=== PATIENT | female | born 1960 | race Caucasian/White ===

== ENCOUNTER 2017-11-02 08:30 | Inpatient (IN) ==
[2017-10-26 13:34] LABS: Basophils # (Auto) 0.1 K/mcL (0.0-0.3); Basophils % (Auto) 0.9 % (0.0-2.0); Eosinophils # (Auto) 0.2 K/mcL (0.0-0.7); Eosinophils % (Auto) 3.1 % (0.0-7.0); Granulocytes % (Auto) 52.9 % (38.0-78.0); Lymphocytes # (Auto) 3.1 K/mcL (1.5-4.8); Lymphocytes % (Auto) 38.7 % (15.5-49.0); Mean Cell Volume 92.7 fL (80.0-100.0); Mean Corpuscular HGB Conc 33.3 g/dL (31.0-36.0); Mean Corpuscular Hemoglobin 30.9 pg (26.0-34.0); Monocytes # (Auto) 0.4 K/mcL (0.1-0.9); Monocytes % (Auto) 4.4 % (1.0-12.0); Platelet Count 327 K/mcL (140-440); RBC 4.26 M/mcL (4.00-5.20); Red Cell Distribution Width 13.9 % (11.5-14.5)
[2017-10-26 14:11] LABS: Blood Urea Nitrogen 18 mg/dl (6-20)
[~2017-11-02 08:30] MED LIST: ACETAMINOPHEN 500 MG TABLET PO SCH; CELECOXIB 200 MG CAPSULE PO SCH; GABAPENTIN 300 MG CAPSULE PO SCH; ceFAZolin 1 GM VIAL IV SCH; oxyCODONE 10 MG TAB.ER.12H PO SCH
--- NOTE | 2017-11-02 13:12 | Brief Operative Note ---
Date of procedure: 11/02/17 Pre-op diagnosis: right shoulder rca Post-op diagnosis: same Procedure: right reverse tsa and bicep tenodesis Grafts/Implants: Yes Anesthesia: RADHA Surgeon: Vinicius Hope Entry Level Administrative Assistant: Srikanth Arceo Estimated blood loss (cc): 20 Specimens Removed/Pathology: none sent Condition: stable Disposition: PACU
[2017-11-02] MEDS ORDERED: ONDANSETRON ODT 4 MG TABLET SL PRN (13:13)
[2017-11-02] MEDS ORDERED: FLEETS ADULT ENEMA PR PRN (13:13)
[2017-11-02] MEDS ORDERED: ACETAMINOPHEN 325 MG TABLET PO PRN (13:13)
[2017-11-02] MEDS ORDERED: TRANEXAMIC ACID 1,000 MG/10 ML VIAL IV ONE ×2 (13:13→13:25)
[2017-11-02] MEDS ORDERED: TEMAZEPAM 15 MG CAPSULE PO PRN (13:13)
[2017-11-02] MEDS ORDERED: DEXTROSE 50% 50 ML VIAL IV PRN (13:13)
[2017-11-02] MEDS ORDERED: BISACODYL 10 MG SUPP.RECT PR PRN (13:13)
[2017-11-02] MEDS ORDERED: ONDANSETRON 4 MG/2 ML VIAL IV PRN ×2 (13:13→14:05)
[2017-11-02] MEDS ORDERED: BENZOCAINE/MENTHOL 1 LOZENGE PO PRN ×2 (13:13→14:05)
[2017-11-02] MEDS ORDERED: MAGNESIUM HYDROXIDE 30 ML ORAL.SUSP PO PRN (13:13)
[2017-11-02] MEDS ORDERED: DEXTROSE 31 GM ORAL.SUSP PO PRN (13:13)
[2017-11-02] MEDS ORDERED: HYDROmorphone 2 MG/ML VIAL IV PRN ×2 (13:13→14:05)
[2017-11-02] MEDS ORDERED: POLYETHYLENE GLYCOL 3350 17 GM PACKET PO PRN (13:13)
[2017-11-02] MEDS ORDERED: MIDAZOLAM 5 MG/5 ML VIAL IV ONE (13:25)
[2017-11-02] MEDS ORDERED: ONDANSETRON 4 MG/2 ML VIAL IV ONE (13:25)
[2017-11-02] MEDS ORDERED: fentaNYL 250 MCG/5 ML VIAL IV ONE (13:25)
[2017-11-02] MEDS ORDERED: LIDOCAINE HCL/PF 100 MG/5 ML SYRINGE IV ONE (13:25)
[2017-11-02] MEDS ORDERED: SUCCINYLCHOLINE 20 MG/ML ML IV ONE (13:25)
[2017-11-02] MEDS ORDERED: PROPOFOL 200 MG/20 ML VIAL IV ONE (13:25)
[2017-11-02] MEDS ORDERED: ROPIVACAINE HCL/PF 30 ML VIAL IJ ONE (13:25)
[2017-11-02] MEDS ORDERED: DEXAMETHASONE 10 MG/ML VIAL IV ONE (13:25)
[2017-11-02] MEDS ORDERED: GENTAMICIN SULFATE 800 MG/20 ML VIAL IR ONE (13:44)
[2017-11-02] MEDS ORDERED: FLUMAZENIL 0.1 MG/ML ML IV PRN (14:05)
[2017-11-02] MEDS ORDERED: diphenhydrAMINE 50 MG/ML VIAL IV PRN (14:05)
[2017-11-02] MEDS ORDERED: LACTATED RINGERS 250 ML IV PRN (14:05)
[2017-11-02] MEDS ORDERED: PROMETHAZINE 25 MG/ML VIAL IV PRN (14:05)
[2017-11-02] MEDS ORDERED: IPRATROPIUM/ALBUTEROL 3 ML AMPUL.NEB NEB PRN (14:05)
[2017-11-02] MEDS ORDERED: NALOXONE HCL 0.4 MG/ML VIAL IV PRN (14:05)
[2017-11-02] MEDS ORDERED: LACTATED RINGERS 1,000 ML IV SCH (14:15)
[2017-11-02] MEDS: fentaNYL 100 MCG/2 ML VIAL IV PRN ×3 (15:35→16:01)
--- NOTE | 2017-11-02 15:46 | XRay Report ---
HISTORY: Postop arthroplasty of the right shoulder FINDINGS: Patient has a reverse right shoulder prosthesis. A true lateral view was not obtained. On the AP and oblique images the prosthesis appears normally aligned. There is no evidence of a fracture or abnormal soft tissue calcification. IMPRESSION: Well-positioned right shoulder prosthesis Interpreted and Authenticated by: Mauro Jovel 11/02/17
--- NOTE | 2017-11-02 15:55 | Operative Note ---
DATE OF OPERATION: 11/02/2017 PREOPERATIVE DIAGNOSES: Right shoulder severe degenerative arthritis and rotator cuff arthropathy and biceps tendinopathy. POSTOPERATIVE DIAGNOSES: Right shoulder severe degenerative arthritis and rotator cuff arthropathy and biceps tendinopathy. PROCEDURE: Right reverse total shoulder and a biceps tenodesis. SURGEON: Vinicius Hope M.D. STAFF TRAINER: Srikanth Arceo PA-C. ANESTHESIA: General LMA anesthesia. COMPLICATIONS: None. ESTIMATED BLOOD LOSS: 50 mL. IMPLANTS: A size 11 humeral stem with a noncemented stem with a 6 mm poly liner with a 36 mm glenosphere with 2 mm of offset and 2 mm of the eccentricity, a standard glenosphere 28 mm with a central screw measuring 32. The other screws around the rim were 20, 28 and 32, all with good purchase. DESCRIPTION OF PROCEDURE: The patient was brought to the operating room and put to sleep with general LMA anesthesia. Once asleep, the patient had the right shoulder sterilely prepped and draped in the usual sterile fashion and placed Ioban over the skin and had a timeout to confirm the operative site. Once this was done, we then made a deltopectoral approach to the shoulder and retracted the deltoid and the cephalic vein laterally. We exposed the anterior shoulder and released the subscap. We identified the biceps tendon and the bicipital groove which was then released and attached to the pec major muscle with two [id number] sutures. Once this was done, we released the subscap. This was tagged and retracted medially. We dislocated the humeral head and released the capsule on the inferior portion of the humeral neck. We then made our neck cut at the surgical neck region with 20 degrees of retroversion. We then placed a protective plate and retracted the humeral shaft posteriorly, the capsule anteriorly with retractors. I identified the remnants of the biceps tendon which were then removed. A 360-degree capsular release and labral removal was performed. We placed a guide pin in the central portion of the glenoid using 10 degrees of inclination. We reamed up to the size 40, implanted a 28 mm glenosphere with a central screw measuring 32. They were circumferential screws. Superior screw measured 20, inferior screw 28, anterior screw 32. Once very secure, we then placed a 36 mm glenosphere with 2 mm of offset and 2 mm eccentricity which were tapped into place. We then prepared the shaft reaming up to size 11, trialing a size 11 stem which was very stable. We then cemented into place an 11 stem distally cemented, proximally porous ingrowth because of her very poor humeral bone quality. Once the stem was dried and in place, we tapped the proximal poly and attachment into place until it came in contact with the humeral bone. Any extra cement had been removed. We had a 6 mm liner. This was reduced, had excellent range of motion, stability and tension with 1 mm play. We then closed the deltopectoral interval with 2-0 Vicryl and closed the skin with 2-0 Vicryl and adhesive closure. The patient tolerated this well without complication. Sterile bandage applied, Donjoy sling fitted and given to the patient. RBH:kenrick Job ID: [id number] Doc ID: [id number] Vinicius Hope MD
[2017-11-02] MEDS: KETOROLAC 15 MG/ML VIAL IV PRN (16:34)
[2017-11-02] MEDS: GABAPENTIN 300 MG CAPSULE PO SCH (16:35)
[2017-11-02] MEDS: 0.45 % SODIUM CHLORIDE 1,000 ML IV SCH (16:35)
[2017-11-02] MEDS: 0.9 % SODIUM CHLORIDE 10 ML SYRINGE IV SCH ×2 (16:35→22:27)
[2017-11-02] MEDS: ACETAMINOPHEN 500 MG TABLET PO SCH ×2 (16:35→20:49)
[2017-11-02] MEDS: INSULIN LISPRO 1 UNIT/0.01 ML UNIT SQ SCH ×2 (17:19→20:48)
[2017-11-02] MEDS: MULTIVIT,THER IRON,CA,FA & MIN 1 TABLET PO SCH (20:46)
[2017-11-02] MEDS: FAMOTIDINE 20 MG TABLET PO SCH (20:46)
[2017-11-02] MEDS: oxyCODONE/APAP 5/325MG TABLET PO PRN (20:47)
[2017-11-02] MEDS: DOCUSATE SODIUM 100 MG CAPSULE PO SCH (20:47)
[2017-11-02] MEDS ORDERED: NON FORMULARY MEDICATION 1 DOSE MISCELL (Ranitidine Hcl [Zantac] 300 MG) PO SCH (21:00)
[2017-11-02] MEDS ORDERED: GABAPENTIN 300 MG CAPSULE PO SCH (21:00)
[2017-11-02] MEDS ORDERED: SENNOSIDES 1 TABLET PO SCH (21:00)
[2017-11-02] MEDS: ceFAZolin 1 GM VIAL IV SCH (22:27)
[2017-11-03] MEDS: 0.45 % SODIUM CHLORIDE 1,000 ML IV SCH ×2 (02:35→09:13)
[2017-11-03] MEDS: ceFAZolin 1 GM VIAL IV SCH (05:21)
[2017-11-03] MEDS: oxyCODONE/APAP 5/325MG TABLET PO PRN ×2 (05:21→09:10)
[2017-11-03] MEDS: 0.9 % SODIUM CHLORIDE 10 ML SYRINGE IV SCH (05:22)
--- NOTE | 2017-11-03 07:35 | Orthopedic Progress Note ---
Subjective Patient information: Note initiated : 11/03/17 at 7:33 am Service Date, if different from initiated Date: [] Patient: Yaneth Theodore 57 y/o F admitted on 11/02/17 for Rt Reverse Total Shoulder Arthroplasty with*!network diagnostic support specialist!*. Chief Complaint: [Pt is stable this morning on post operative day 2 without any significant concerns or complaints. Patients vital signs have remained stable. Patients dressing is dry and is grossly intact from a neurovascular and motor standpoint. Patients 10 point ROS is otherwise negative. ] Objective Vital signs: Vital Signs Temp Pulse Resp BP Pulse Ox 11/03/17 07:31 96.9 F L 74 22 106/62 96 11/03/17 02:49 98.0 F 91 H 22 118/72 91 11/02/17 23:49 98.9 F 107 H 22 125/81 92 11/02/17 19:09 98.3 F 92 H 22 122/78 92 11/02/17 18:10 89 126/75 92 11/02/17 17:39 80 128/78 92 11/02/17 17:10 131/71 95 11/02/17 16:54 128/73 96 11/02/17 16:39 129/83 96 11/02/17 16:27 82 129/83 97 11/02/17 16:10 98 F 82 16 148/76 96 11/02/17 15:59 97.8 F 82 16 143/73 98 11/02/17 15:39 97.7 F 85 18 147/77 98 11/02/17 15:23 97.5 F 74 18 152/71 92 11/02/17 15:18 85 14 150/78 92 11/02/17 15:13 85 14 158/75 98 11/02/17 15:08 97.2 F 89 18 170/81 99 11/02/17 10:15 98.3 F 18 135/86 95 11/02/17 08:49 98.7 F 65 18 135/86 95 Intake and Output 11/02/17 11/03/17 11/03/17 21:59 05:59 13:59 Intake Total 2120 / 2120 1300 / 1300 Output Total 1050 / 1050 1100 / 1100 Balance 1070 / 1070 200 / 200 Intake: IV 1000 / 1000 Sodium Chloride 0.45% 1,000 ml 1000 / 1000 @ 100 mls/hr IV .Q10H NOAM Rx#: [id number] Oral 120 / 120 300 / 300 IV - Manual Only 1999 Output: Urine Catheter Amount 500 / 500 350 / 350 Void Amount 550 / 550 750 / 750 Other: Meal Dinner Percent of Meal Consumed 100% Feeding Ability Independent Urine Appearance Clear Clear Urine Color Bright Yellow Pale Urine Odor Normal Normal # Voids 1 Weight 189 lb 8 oz Intake & Output: Intake & Output 11/02/17 11/03/17 11/03/17 21:59 05:59 13:59 Intake Total 2120 / 2120 1300 / 1300 Output Total 1050 / 1050 1100 / 1100 Balance 1070 / 1070 200 / 200 Weight 189 lb 8 oz Intake: IV 1000 / 1000 Sodium Chloride 0.45% 1,000 ml 1000 / 1000 @ 100 mls/hr IV .Q10H NOAM Rx#: [id number] Oral 120 / 120 300 / 300 IV - Manual Only 1999 Output: Urine Catheter Amount 500 / 500 350 / 350 Void Amount 550 / 550 750 / 750 Other: Meal Dinner Percent of Meal Consumed 100% Feeding Ability Independent Urine Appearance Clear Clear Urine Color Bright Yellow Pale Urine Odor Normal Normal # Voids 1 Incision: Yes healing Incision clean and dry: Yes Dressing: Yes clean, Yes dry Weight bearing status: full Neurological exam IM: Yes motor sensory intact, Yes neurovascular intact Extremities exam IM: Yes neurovascular intact - Labs CBC & BMP: 10/26/17 11:23 10/26/17 11:23 Labs: Orthopedic Labs 10/26/17 11:23 PT 11.8 L INR 0.9 APTT 31 10/26/17 11:23 Hgb 13.2 Hct 39.5 Assessment and Plan (1) Hx of total shoulder replacement The patient has been educated regarding dressing care, Physical Therapy recommendations, home exercises, restrictions, and follow up appointments. The patient has had all necessary DME prescribed. The patient has remained relatively stable during their hospital course. Leave Dermabond patch intact until followup Status: Acute
--- NOTE | 2017-11-03 07:38 | Discharge Summary ---
Ortho Discharge - TSA - Patient Instructions Diet: Regular Diet Activity: activity as tolerated, weight bearing as tolerated Total Shoulder Protocol: Leave immobilizer in place except for bathing and ROM. Abduction pillow. Continue to wear sling until seen by physician. Codman Pendulum : These exercises use momentum produced by your body to move your shoulder joint. Bend your knees and shift your weight to your front leg, then back, allowing your arm to swing in the same directions. Using the same technique, alternately shift your weight between your right and left legs, allowing your arm to swing from side to side. These exercises are also performed in counterclockwise and clockwise circular motions. Typically these exercises are performed several times per day, for a set number repetitions or minutes, such as 20 times in a row or 5 minutes at a time. Dressing Care: May shower in 2 days - Problem Maintenance (1) Hx of total shoulder replacement Status: Acute - Follow Up Plan Follow Up Appointments: Srikanth Arceo PA-C [Physician Transit Man] - 11/17/17 9:30 am Disposition: Home, Self-Care Prognosis: Good Rehab Potential: Good I certify that the patient requires SNF services: No Overall status at discharge: patient is progressing back to baseline - Orders For Discharge Prescriptions: Docusate Sodium [Colace] 100 mg PO BID #60 cap oxyCODONE/APAP [Percocet 5-325 mg] 1 - 2 tab PO Q4HP PRN #75 tab PRN Reason: Pain Level 3-6
[2017-11-03] MEDS: KETOROLAC 15 MG/ML VIAL IV PRN (07:59)
[2017-11-03] MEDS ORDERED: DULoxetine 30 MG CAPSULE PO SCH (08:00)
[2017-11-03] MEDS ORDERED: MELOXICAM 7.5 MG TABLET PO SCH (09:00)
[2017-11-03] MEDS ORDERED: ESTRADIOL 1 MG TABLET PO SCH (09:00)
[2017-11-03] MEDS: DOCUSATE SODIUM 100 MG CAPSULE PO SCH (09:09)
[2017-11-03] MEDS: MULTIVIT,THER IRON,CA,FA & MIN 1 TABLET PO SCH (09:09)
[2017-11-03] MEDS: FAMOTIDINE 20 MG TABLET PO SCH (09:09)
[2017-11-03] MEDS: GABAPENTIN 300 MG CAPSULE PO SCH (09:10)
[2017-11-03] MEDS: ACETAMINOPHEN 500 MG TABLET PO SCH (09:11)
[2017-11-03] MEDS ORDERED: CYCLOBENZAPRINE 10 MG TABLET PO ONE (10:50)
== END 2017-11-03 11:04 | disposition home or self-care (01) | DRG 483 ==
LOC: MEDSUR 08:49
PROVIDERS: ADMIT Orthopaedic Surgery; ATTEND Orthopaedic Surgery

== ENCOUNTER 2019-04-11 08:30 | Inpatient (IN) ==
[2019-04-06 13:11] LABS: Basophils # (Auto) 0.08 K/mcL (0.00-0.30); Basophils % (Auto) 0.9 % (0.0-2.0); Eosinophils # (Auto) 0.29 K/mcL (0.00-0.70); Eosinophils % (Auto) 3.3 % (0.0-7.0); Granulocytes % (Auto) 51.6 % (38.0-78.0); Hematocrit 41.3 % (34.1-44.9); Hemoglobin 13.6 g/dL (11.2-15.7); Lymphocytes # (Auto) 3.36 K/mcL (1.50-4.80); Mean Cell Volume 91.6 fL (80.0-100.0); Mean Corpuscular HGB Conc 32.9 g/dL (31.0-36.0); Mean Platelet Volume 11.3 fL (7.4-10.4); Monocytes # (Auto) 0.55 K/mcL (0.10-0.90); Monocytes % (Auto) 6.2 % (1.0-12.0); Platelet Count 340 K/mcL (140-440); RBC 4.51 M/mcL (3.59-5.38); Red Cell Distribution Width 13.8 % (11.5-14.5); WBC 8.8 K/mcL (4.50-11.00)
[2019-04-06 13:17] LABS: Blood Urea Nitrogen 15 mg/dl (6-20); Calcium 9.9 mg/dl (8.6-10.4); Carbon Dioxide 27 mmol/L (22-30); Chloride 96 mmol/L (96-108); Glomerular Filtration Rate 81; Glucose 107 mg/dL (70-105)
[2019-04-06 18:05] LABS: Appearance,Urine CLEAR; Bilirubin,Urine NEG (NEG); Color,Urine YELLOW; Culture Indicated,Urine NO; Glucose,Urine (UA) NEGATIVE (NEG); Ketones,Urine NEG (NEG); Leukocyte Esterase,Urine NEG /uL (NEG); Nitrate,Urine NEG (NEG); Protein,Urine NEG (NEG); Specific Gravity,Urine 1.012 (1.000-1.035); Urine Blood NEG mg/dL (<0.03); Urobilinogen,Urine NEG (NEG)
[~2019-04-11 08:30] MED LIST changes: -ceFAZolin 1 GM VIAL IV SCH; +ceFAZolin 2 GM in DEXTROSE 5% IN WATER 50 ML IV SCH
[2019-04-11] MEDS ORDERED: IPRATROPIUM/ALBUTEROL 3 ML AMPUL.NEB NEB PRN ×2 (09:00→13:25)
[2019-04-11] MEDS ORDERED: SCOPOLAMINE 1 PATCH PATCH TOPICAL PRN (09:00)
[2019-04-11] MEDS ORDERED: GENTAMICIN SULFATE 800 MG/20 ML VIAL IR ONE (11:23)
[2019-04-11] MEDS ORDERED: fentaNYL 250 MCG/5 ML VIAL IV ONE (12:05)
[2019-04-11] MEDS ORDERED: LIDOCAINE HCL/PF 100 MG/5 ML SYRINGE IV ONE (12:05)
[2019-04-11] MEDS ORDERED: SUCCINYLCHOLINE 20 MG/ML ML IV ONE (12:05)
[2019-04-11] MEDS ORDERED: GLYCOPYRROLATE 0.2 MG/ML VIAL IV ONE (12:05)
[2019-04-11] MEDS ORDERED: PROPOFOL 200 MG/20 ML VIAL IV ONE (12:05)
[2019-04-11] MEDS ORDERED: ONDANSETRON 4 MG/2 ML VIAL IV ONE (12:05)
[2019-04-11] MEDS ORDERED: KETAMINE 100 MG/ML ML IV ONE (12:05)
[2019-04-11] MEDS ORDERED: ROPIVACAINE HCL/PF 30 ML VIAL IJ ONE (12:05)
[2019-04-11] MEDS ORDERED: PHENYLEPHRINE 10 MG/ML VIAL IV ONE (12:05)
[2019-04-11] MEDS ORDERED: DEXAMETHASONE 10 MG/ML VIAL IV ONE (12:05)
[2019-04-11] MEDS ORDERED: ePHEDrine 50 MG/ML AMPUL IV ONE (12:05)
[2019-04-11] MEDS ORDERED: diphenhydrAMINE 50 MG/ML VIAL IV PRN (13:25)
[2019-04-11] MEDS ORDERED: METHOCARBAMOL 1,000 MG/10 ML VIAL IV PRN (13:25)
[2019-04-11] MEDS ORDERED: ONDANSETRON 4 MG/2 ML VIAL IV PRN ×2 (13:25→13:34)
[2019-04-11] MEDS ORDERED: NALOXONE HCL 0.4 MG/ML VIAL IV PRN (13:25)
[2019-04-11] MEDS ORDERED: PROMETHAZINE 25 MG/ML VIAL IV PRN (13:25)
[2019-04-11] MEDS ORDERED: LACTATED RINGERS 250 ML IV PRN (13:25)
[2019-04-11] MEDS ORDERED: HYDROmorphone 2 MG/ML VIAL IV PRN ×2 (13:25→13:34)
[2019-04-11] MEDS ORDERED: fentaNYL 100 MCG/2 ML VIAL IV PRN (13:25)
[2019-04-11] MEDS ORDERED: LACTATED RINGERS 1,000 ML IV SCH (13:30)
[2019-04-11] MEDS ORDERED: TRANEXAMIC ACID 1,000 MG/10 ML VIAL IV SCH (13:34)
[2019-04-11] MEDS ORDERED: MAGNESIUM HYDROXIDE 30 ML ORAL.SUSP PO PRN (13:34)
[2019-04-11] MEDS ORDERED: BENZOCAINE/MENTHOL 1 LOZENGE PO PRN (13:34)
[2019-04-11] MEDS ORDERED: KETOROLAC 15 MG/ML VIAL IV PRN (13:34)
[2019-04-11] MEDS ORDERED: POLYETHYLENE GLYCOL 3350 17 GM PACKET PO PRN (13:34)
[2019-04-11] MEDS ORDERED: FLEETS ADULT ENEMA PR PRN (13:34)
[2019-04-11] MEDS ORDERED: ACETAMINOPHEN 325 MG TABLET PO PRN (13:34)
[2019-04-11] MEDS ORDERED: BISACODYL 10 MG SUPP.RECT PR PRN (13:34)
[2019-04-11] MEDS ORDERED: FAMOTIDINE 20 MG TABLET PO PRN (13:37)
[2019-04-11] MEDS ORDERED: oxyCODONE/APAP 5/325MG TABLET PO PRN (13:37)
--- NOTE | 2019-04-11 13:41 | Brief Operative Note ---
Date of procedure: 04/11/19 Pre-op diagnosis: Left shoulder rca Post-op diagnosis: same Procedure: left reverse tsa and bicep tenodesis Grafts/Implants: Yes Anesthesia: RADHA Surgeon: Vinicius Hope Hand Ii Blocker: Srikanth Arceo Estimated blood loss (cc): 120 Specimens Removed/Pathology: none sent Condition: stable Disposition: PACU
--- NOTE | 2019-04-11 14:39 | Operative Note ---
DATE OF OPERATION: 04/11/2019 PREOPERATIVE DIAGNOSES: Left shoulder rotator cuff arthropathy with retained hardware. POSTOPERATIVE DIAGNOSIS: Left shoulder rotator cuff arthropathy with retained hardware. PROCEDURES: Left reverse total shoulder with biceps tenodesis and hardware removal. SURGEON: Vinicius Hope MD FLY WINDER: Srikanth Arceo PA-C. This provider's expertise and technical skill were required throughout the case. The PA assisted with preoperative coordination, intraoperative retraction, wound closure, dressing and splint application, as well as postoperative documentation and care coordination. ANESTHESIA: General LMA anesthesia. COMPLICATIONS: None. DESCRIPTION OF PROCEDURE: The patient was brought to the operating room and put to sleep with general LMA anesthesia. Once asleep, the patient had the left shoulder sterilely prepped and draped in the usual sterile fashion. He had been sat in a beach chair position. Ioban was placed over the axillary skin and a timeout was performed. We confirmed the operative site by initials, consent form and x-rays. Preop antibiotics and tranexamic acid had been given. Once done, a deltopectoral approach was performed and we then exposed the joint, releasing the subscap anteromedially. This then subluxed the humeral head and made our neck cut at the surgical neck region and we placed a protective plate. We then subluxed the humerus posteriorly and performed a 360 degree capsular release as well as release of the remnants of the biceps. We placed a pin centrally and then reamed. We then encountered a Mitek anchor that was removed using a rongeur. We irrigated and then reamed to depth until we saw bleeding bone on the inferior 50%. Once done, we then placed a metaglene with a 32 mm central screw. This had excellent purchase. We placed 3 peripheral screws, which measured 28 mm and 32 and 32 mm. A 36 mm glenosphere was placed with 2 mm of offset and 2 mm of the eccentricity. Once done, we then prepared the humeral side. This was broached up to the size 11 and we placed an 11 trial. This seemed to fit very nicely with a standard poly. We then placed cement on the stem distally and this was tapped into place, given her bone quality was very poor. Once this was dry, we then placed a standard poly and then tapped this into place. This was reduced nicely. This had excellent range of motion of the shoulder. We irrigated thoroughly and then closed the deltopectoral interval and repaired the biceps tendon with #2 Ethibond stitches to the major. Once that was repaired, we closed the interval with 2-0 Vicryl and then closed the skin with 2-0 Vicryl and 3-0 Monocryl and adhesive closure. The patient tolerated this well without complication. This shoulder was thoroughly irrigated. RBH:sherlyn Job ID: [id number] Doc ID: [id number] Vinicius Hope MD
--- NOTE | 2019-04-11 15:11 | XRay Report ---
HISTORY: Postop left shoulder arthroplasty FINDINGS: there is a well-positioned reverse left shoulder prosthesis. No fracture is present. There is separation between the acromion and clavicle which could be posttraumatic or postsurgical. IMPRESSION: Well-positioned left shoulder prosthesis Interpreted and Authenticated by: Mauro Jovel 04/11/19
[2019-04-11] MEDS: 0.9 % SODIUM CHLORIDE 10 ML SYRINGE IV SCH ×2 (15:15→23:20)
[2019-04-11] MEDS: LACTATED RINGERS 1,000 ML IV SCH ×3 (15:53→23:53)
--- NOTE | 2019-04-11 16:23 | Discharge Summary ---
Ortho Discharge - TSA - Patient Instructions Diet: Regular Diet Activity: activity as tolerated, weight bearing as tolerated Total Shoulder Protocol: Leave immobilizer in place except for bathing and ROM. Abduction pillow. Continue to wear sling until seen by physician. Codman Pendulum : These exercises use momentum produced by your body to move your shoulder joint. Bend your knees and shift your weight to your front leg, then back, allowing your arm to swing in the same directions. Using the same technique, alternately shift your weight between your right and left legs, allowing your arm to swing from side to side. These exercises are also performed in counterclockwise and clockwise circular motions. Typically these exercises are performed several times per day, for a set number repetitions or minutes, such as 20 times in a row or 5 minutes at a time. Dressing Care: May shower in 2 days, Aquacel Ag - leave on for 5 days - Follow Up Plan Follow Up Appointments: Srikanth Arceo PA-C [Physician Montessori Toddler Teacher] - 04/26/19 9:30 am Disposition: Home, Self-Care Prognosis: Good Rehab Potential: Good I certify that the patient requires SNF services: No Overall status at discharge: patient is progressing back to baseline - Orders For Discharge Prescriptions: Docusate Sodium [Colace] 100 mg PO BID #60 cap Transmission Status: Pending to [facility] #[id number] HYDROcodone/APAP 10/325MG [[place] 10-325Mg] 1 - 2 tab PO Q4HP PRN #75 tab PRN Reason: Pain Level 3-6 Prescription Printed
[2019-04-11] MEDS: GABAPENTIN 300 MG CAPSULE PO SCH ×2 (17:34→23:52)
[2019-04-11] MEDS: DULoxetine 30 MG CAPSULE PO SCH (17:34)
[2019-04-11] MEDS: HYDROcodone/APAP 10/325MG TABLET PO PRN ×3 (19:10→23:52)
[2019-04-11] MEDS: ceFAZolin 1 GM VIAL IV SCH (19:55)
[2019-04-11] MEDS: DOCUSATE SODIUM 100 MG CAPSULE PO SCH (19:56)
[2019-04-11] MEDS ORDERED: NON FORMULARY MEDICATION 1 DOSE MISCELL (Turmeric Root Extract [Turmeric] 500 MG) PO SCH (21:00)
[2019-04-11] MEDS ORDERED: SENNOSIDES 1 TABLET PO SCH (21:00)
[2019-04-11] MEDS ORDERED: ECHINACEA 400 MG PO SCH (21:00)
[2019-04-11] MEDS ORDERED: TEMAZEPAM 15 MG CAPSULE PO PRN (21:00)
[2019-04-12] MEDS: HYDROcodone/APAP 10/325MG TABLET PO PRN ×3 (04:05→12:32)
[2019-04-12] MEDS: 0.9 % SODIUM CHLORIDE 10 ML SYRINGE IV SCH (04:06)
[2019-04-12] MEDS: ceFAZolin 1 GM VIAL IV SCH (04:06)
--- NOTE | 2019-04-12 08:05 | Orthopedic Progress Note ---
Subjective Patient information: Note initiated : 04/12/19 at 8:04 am Service Date, if different from initiated Date: [] Patient: Yaneth Theodore 59 y/o F admitted on 04/11/19 for Left Reverse Total Shoulder with Biceps Tenodesis. Chief Complaint: [minimal pain and no sob no cp and ambulated well.] Objective Vital signs: Vital Signs Temp Pulse Resp BP Pulse Ox 04/12/19 02:31 98.2 F 83 24 H 121/71 94 04/11/19 22:57 99.3 F H 103 H 24 H 109/65 95 04/11/19 20:07 99 H 24 H 92 04/11/19 19:23 98.5 F 99 H 24 H 131/77 92 04/11/19 17:55 97.8 F 105 H 18 158/85 97 04/11/19 16:55 101 H 18 148/85 99 04/11/19 16:25 102 H 18 142/83 98 04/11/19 15:55 150/82 97 04/11/19 15:40 98 H 18 148/85 97 04/11/19 15:25 104 H 16 144/80 96 04/11/19 15:10 107 H 16 142/81 96 04/11/19 14:55 97.0 F 113 H 16 139/86 94 04/11/19 14:46 97.5 F 108 H 19 133/76 95 04/11/19 14:39 108 H 15 140/72 95 04/11/19 14:24 109 H 18 135/74 94 04/11/19 14:09 101 H 19 130/60 99 04/11/19 13:54 97.8 F 105 H 15 143/82 95 04/11/19 09:21 98.7 F 86 18 135/80 93 Intake and Output 04/11/19 04/12/19 04/12/19 21:59 05:59 13:59 Intake Total 240 800 Output Total 50 Balance 240 750 Intake: Oral 240 800 Output: Void Amount 50 Other: Meal Dinner Percent of Meal Consumed 100% Feeding Ability Independent Urine Appearance Clear # Voids 1 1 Weight 206 lb 8 oz Intake & Output: Intake & Output 04/11/19 04/12/19 04/12/19 21:59 05:59 13:59 Intake Total 240 800 Output Total 50 Balance 240 750 Weight 206 lb 8 oz Intake: Oral 240 800 Output: Void Amount 50 Other: Meal Dinner Percent of Meal Consumed 100% Feeding Ability Independent Urine Appearance Clear # Voids 1 1 Incision: Yes healing Incision clean and dry: Yes Dressing: Yes clean Weight bearing status: full Neurological exam IM: Yes abnormal gait, Yes oriented X3, Yes neurovascular intact Extremities exam IM: Yes Foot pink and warm (dc home) - Labs CBC & BMP: 04/06/19 09:47 04/06/19 09:47 Labs: 04/06/19 09:47 Hgb 13.6 Hct 41.3
[2019-04-12] MEDS: DULoxetine 30 MG CAPSULE PO SCH (08:30)
[2019-04-12] MEDS: GABAPENTIN 300 MG CAPSULE PO SCH (08:30)
[2019-04-12] MEDS: DOCUSATE SODIUM 100 MG CAPSULE PO SCH (08:31)
[2019-04-12] MEDS ORDERED: UBIDECARENONE 100 MG PO SCH (09:00)
[2019-04-12] MEDS ORDERED: BIOTIN 2500 MCG PO SCH (09:00)
[2019-04-12] MEDS ORDERED: MELOXICAM 15 MG PO SCH (09:00)
[2019-04-12] MEDS ORDERED: MAGNESIUM OXIDE 400 MG TABLET PO SCH (09:00)
[2019-04-12] MEDS: LACTATED RINGERS 1,000 ML IV SCH (10:35)
== END 2019-04-12 13:11 | disposition home or self-care (01) | DRG 483 ==
LOC: MEDSUR 08:39
PROVIDERS: ADMIT Orthopaedic Surgery; ATTEND Orthopaedic Surgery

== ENCOUNTER 2020-02-24 11:29 | Inpatient (IN) ==
[2020-02-24] MEDS ORDERED: GENTAMICIN SULFATE 800 MG/20 ML VIAL IR ONE (11:43)
[2020-02-24] MEDS ORDERED: ceFAZolin 2 GM in DEXTROSE 5% IN WATER 50 ML IV SCH (12:30)
[2020-02-24] MEDS ORDERED: ONDANSETRON 4 MG/2 ML VIAL IV PRN ×6 (12:40→17:50)
[2020-02-24] MEDS ORDERED: HYDROmorphone 1 MG/ML SYRINGE IV PRN ×2 (12:40→17:50)
[2020-02-24] MEDS ORDERED: FLEETS ADULT ENEMA PR PRN ×2 (12:40→17:50)
[2020-02-24] MEDS ORDERED: TRANEXAMIC ACID 1,000 MG/10 ML VIAL IV SCH (12:40)
[2020-02-24] MEDS ORDERED: BISACODYL 10 MG SUPP.RECT PR PRN ×3 (12:40→17:50)
[2020-02-24] MEDS ORDERED: BENZOCAINE/MENTHOL 1 LOZENGE PO PRN ×2 (12:40→15:37)
[2020-02-24] MEDS ORDERED: MAGNESIUM HYDROXIDE 30 ML ORAL.SUSP PO PRN ×2 (12:40→17:50)
[2020-02-24] MEDS ORDERED: KETOROLAC 15 MG/ML VIAL IV PRN (12:40)
[2020-02-24] MEDS ORDERED: HYDROcodone/APAP 10/325MG TABLET PO PRN (12:40)
[2020-02-24] MEDS ORDERED: ACETAMINOPHEN 325 MG TABLET PO PRN ×3 (12:40→17:50)
[2020-02-24] MEDS ORDERED: POLYETHYLENE GLYCOL 3350 17 GM PACKET PO PRN ×3 (12:40→17:50)
[2020-02-24] MEDS ORDERED: LACTATED RINGERS 1,000 ML IV SCH ×2 (12:45→15:45)
[2020-02-24] MEDS ORDERED: CYCLOBENZAPRINE 10 MG TABLET PO PRN (12:48)
[2020-02-24] MEDS ORDERED: HYDROCORTISONE SOD SUCC 250 MG/2 ML IV ONE (13:09)
[2020-02-24] MEDS ORDERED: ONDANSETRON 4 MG/2 ML VIAL ONE (13:09)
[2020-02-24] MEDS ORDERED: KETAMINE 100 MG/ML ML ONE (13:09)
[2020-02-24] MEDS ORDERED: HYDROmorphone* 2 MG/ML VIAL ONE (13:09)
[2020-02-24] MEDS ORDERED: LIDOCAINE HCL/PF 100 MG/5 ML SYRINGE IV ONE (13:09)
[2020-02-24] MEDS ORDERED: PROPOFOL 200 MG/20 ML VIAL IV ONE (13:09)
[2020-02-24] MEDS ORDERED: fentaNYL 250 MCG/5 ML VIAL IV ONE (13:09)
[2020-02-24] MEDS ORDERED: SUCCINYLCHOLINE 20 MG/ML ML IV ONE (13:09)
[2020-02-24] MEDS ORDERED: DEXAMETHASONE 10 MG/ML VIAL ONE (13:09)
[2020-02-24 13:10] LABS: Basophils # (Auto) 0.08 K/mcL (0.00-0.20); Basophils % (Auto) 0.4 % (0.0-2.0); Eosinophils # (Auto) 0.01 K/mcL (0.00-0.70); Eosinophils % (Auto) 0 % (0.0-7.0); Hematocrit 39.9 % (36.0-48.0); Hemoglobin 13.2 g/dL (12.0-15.0); Lymphocytes # (Auto) 1.41 K/mcL (1.50-4.80); Lymphocytes % (Auto) 6.3 % (15.0-49.0); Mean Cell Volume 93.7 fL (80.0-100.0); Mean Corpuscular HGB Conc 33.1 g/dL (31.0-36.0); Mean Platelet Volume 11.1 fL (7.4-10.4); Monocytes # (Auto) 1.23 K/mcL (0.10-0.90); Monocytes % (Auto) 5.5 % (1.0-12.0); Neutrophils % (Auto) 87.8 % (38.0-78.0); Platelet Count 310 K/mcL (140-440); RBC 4.26 M/mcL (4.00-5.20); Red Cell Distribution Width 13.7 % (11.5-14.5); WBC 22.4 K/mcL (4.5-11.0)
[2020-02-24 13:32] LABS: Blood Urea Nitrogen 17 mg/dL (6-20); Calcium 9.7 mg/dL (8.6-10.4); Carbon Dioxide 21 mmol/L (22-30); Chloride 100 mmol/L (96-108); Glomerular Filtration Rate 99; Glucose 137 mg/dL (70-105)
[2020-02-24 13:53] LABS: Prothrombin Time 13.5 sec (11.9-14.5)
[2020-02-24] MEDS ORDERED: 0.9 % SODIUM CHLORIDE 10 ML SYRINGE IV SCH ×2 (14:00→22:00)
[2020-02-24] MEDS ORDERED: GABAPENTIN 300 MG CAPSULE PO SCH (15:00)
--- NOTE | 2020-02-24 15:01 | Brief Operative Note ---
Brief Operative Note Date of procedure: 02/24/20 Pre-op diagnosis: right hhip fracture greater trochanter Post-op diagnosis: same Procedure: Right hip orif greater trochanter Grafts/Implants: Yes Anesthesia: GETA Complications: none Surgeon: Vinicius Hope Demurrage Man: Srikanth Arceo Estimated blood loss (cc): 300 Tourniquet Time (Minutes): 0 Specimens Removed/Pathology: none sent Condition: stable Disposition: PACU
--- NOTE | 2020-02-24 15:05 | XRay Report ---
INDICATION: RIGHT HIP ORIF TECHNIQUE: 5.82 mGy exposure and 0.2 minutes fluoroscopy utilized by Dr. Hope. Intraoperative spot films obtained. Open reduction and internal fixation of right greater trochanteric and subtrochanteric fracture. IMPRESSION: Open reduction and internal fixation of right trochanteric and subtrochanteric periprosthetic fracture Interpreted and Authenticated by: Turner Viera 02/24/20
--- NOTE | 2020-02-24 15:13 | Discharge Plan ---
Discharge Plan Patient/Caregiver Discharge Instructions Activity: ambulate only with your walker and as per physical therapy Diet: Regular Diet Prescriptions: New hydrocodone-acetaminophen 10-325 mg Tablet 1 - 2 tab PO Q4HP PRN (Reason: Per Pain Protocol) Qty: 75 RF: 0 aspirin 325 mg Tablet,Delayed Release (Dr/Ec) 325 mg PO BID Qty: 30 RF: 0 docusate sodium 100 mg Capsule 100 mg PO BID Qty: 60 RF: 0 No Action duloxetine 60 mg capsule,delayed release(DR/EC) 60 mg PO BID@0800,1800 Qty: 180 RF: 4 meloxicam 15 mg tablet 15 mg PO DAILY Qty: 90 RF: 4 oxycodone-acetaminophen 5-325 mg tablet 1 tab PO Q8H PRN (Reason: shoulder pain) 30 Days Qty: 90 RF: 0 gabapentin 300 mg capsule See Rx Instructions .ROUTE .COMPLEX Qty: 90 RF: 0 echinacea 400 MG capsule 400 mg PO BID RF: 0 turmeric root extract 500 MG capsule 500 mg PO BID RF: 0 magnesium oxide 400 MG tablet 400 mg PO DAILY RF: 0 cyclobenzaprine 10 mg tablet 10 mg PO TID PRN (Reason: muscle spasm) Qty: 30 RF: 0 Other Ambulatory Orders: Physical Therapy DC - EDU (Routine) Location: None Selected Ordered By: Srikanth Arceo Toilet Riser Discharge Order (ONCE) Location: None Selected Ordered By: Srikanth Arceo Walker (ONCE) Location: None Selected Ordered By: Srikanth Arceo Follow Up Plan Follow up with: Srikanth Arceo PA-C [Physician Identification Clerk] - Patient Disposition: Home, Self-Care Prognosis: Good Rehab Potential: Good I certify that the patient requires SNF services: No Overall status at discharge: patient is progressing back to baseline Discharge Orders: Discharge Order (Routine); Ordered 02/25/20 Ordered By: Srikanth Arceo Interventions Interventions: Discharge Vital Signs Last Done: 02/24/20 12:17
[2020-02-24] MEDS ORDERED: IPRATROPIUM/ALBUTEROL 3 ML AMPUL.NEB NEB ONE (15:29)
[2020-02-24] MEDS ORDERED: PROMETHAZINE 25 MG/ML VIAL IV PRN (15:37)
[2020-02-24] MEDS ORDERED: IPRATROPIUM/ALBUTEROL 3 ML AMPUL.NEB NEB PRN (15:37)
[2020-02-24] MEDS ORDERED: MEPERIDINE 25 MG/ML SYRINGE IV PRN (15:37)
[2020-02-24] MEDS ORDERED: LACTATED RINGERS 250 ML IV PRN (15:37)
[2020-02-24] MEDS ORDERED: diphenhydrAMINE 50 MG/ML VIAL IV PRN (15:37)
[2020-02-24] MEDS ORDERED: METHOCARBAMOL 1,000 MG/10 ML VIAL IV PRN (15:37)
[2020-02-24] MEDS ORDERED: ACETAMINOPHEN 1,000 MG/100 ML BAG IV ONE (15:37)
[2020-02-24] MEDS ORDERED: NALOXONE HCL 0.4 MG/ML VIAL IV PRN (15:37)
--- NOTE | 2020-02-24 15:48 | XRay Report ---
INDICATION: Elevated wbc, new productive cough TECHNIQUE: AP portable semiupright chest x-ray COMPARISON: Previous chest x-rays dated 02/22/2020, 10/17/2016, 03/21/2015 FINDINGS:Bilateral reverse shoulder arthroplasty. There is a linear density overlying the left hemithorax. This is presumably within the patient's clothing Lungs:There are left-sided pulmonary parenchymal infiltrates which are new since 02/22/2020. Right lung is negative. Covid is possible although this is typically bilateral. No parenchymal consolidation. Heart, vascular:No significant cardiomegaly. Pulmonary vascularity is normal. No pulmonary edema or pulmonary congestion Mediastinum, kristal:No mediastinal widening. No hilar mass Pleura:No pleural fluid. No pleural-based mass or calcification Skeletal:Negative. IMPRESSION: 1. Interval development of left-sided infiltrates 2. Findings are consistent with pneumonia and covid is possible Interpreted and Authenticated by: Turner Viera 02/24/20
[2020-02-24] MEDS ORDERED: METHOCARBAMOL 1,000 MG/10 ML VIAL ONE (15:49)
[2020-02-24] MEDS: fentaNYL 100 MCG/2 ML VIAL IV PRN ×4 (15:52→16:03)
--- NOTE | 2020-02-24 16:20 | Operative Note ---
DATE OF OPERATION: 02/24/2020 PREOPERATIVE DIAGNOSIS: Greater trochanteric fracture with a periprosthetic extension around her total hip. POSTOPERATIVE DIAGNOSIS: Greater trochanteric fracture with a periprosthetic extension around her total hip. PROCEDURE: Right greater trochanter displaced fracture open reduction and internal fixation with a hook plate and five cables. The hook plate was 115 mm in length. SURGEON: Vinicius Hope M.D. ASBESTOS WORKER: Srikanth Arceo PA-C. The PA's assistance was required for the safe and efficient completion of the entire case. This providers expertise and technical skill were required throughout the case. The PA assisted with preoperative coordination, intraoperative retraction, wound closure, dressing and splint application, as well as postoperative documentation and care coordination. ANESTHESIA: General LMA anesthesia. ESTIMATED BLOOD LOSS: About 300 mL. COMPLICATIONS: None. DISPOSITION: To PACU. DESCRIPTION OF PROCEDURE: The patient was brought to the operating room, put to sleep with general LMA anesthesia. Once asleep, the right hip was sterilely prepped in the left lateral position. Once done, we incised through a prior scar, exposing the fracture site and using the Charnley retractor. We were able to obtain reduction of the greater trochanter over the proximal femoral component. Once done, we then placed a trial and this trial seemed to fit very nicely with 115 mm length. We opened the implant, which was a [employer] hook plate that was a small hook with 115 length. Five cables were passed. Image was used to confirm position and reduction. We obtained anatomic reduction. We then placed the five cables and re-tensioned. We repeated the x-rays and one more re-tensioning gave excellent stability. The fracture itself was very stable. We irrigated thoroughly and then closed the fascial layer with #1 Stratafix x2. We closed the fatty layer with Stratafix and then closed the skin with Stratafix and brad. The patient tolerated this well. There were no complications. Blood loss was 300 mL. She had some difficulty with intubation, meaning a reactive airway, which was going to be reevaluated afterwards. RBH:kenrick Job ID: [id number] Doc ID: [id number] Vinicius Hope MD
[2020-02-24] MEDS ORDERED: POTASSIUM CHLORIDE 40 MEQ in DEXTROSE 5% IN WATER 500 ML IV PRN ×2 (16:43→17:50)
[2020-02-24] MEDS ORDERED: MELATONIN 3 MG TABLET PO PRN (16:43)
[2020-02-24] MEDS ORDERED: POTASSIUM CHLORIDE 20 MEQ PACKET PO PRN ×2 (16:43→17:50)
[2020-02-24] MEDS ORDERED: ONDANSETRON 4 MG ODT TABLET SL PRN ×2 (16:43→17:50)
[2020-02-24] MEDS ORDERED: MAGNESIUM SULFATE 2 GM/50 ML BAG IV PRN ×2 (16:43→17:50)
[2020-02-24] MEDS ORDERED: ACETAMINOPHEN 650 MG/65 ML BAG IV PRN ×2 (16:43→17:50)
[2020-02-24] MEDS ORDERED: 0.9 % SODIUM CHLORIDE 1,000 ML IV SCH ×2 (16:45)
[2020-02-24] MEDS ORDERED: VANCOMYCIN PER PHARMACY IV SCH ×2 (16:45→17:50)
--- NOTE | 2020-02-24 16:46 | Internal Medicine Consult Note ---
HPI Data of Consult Consult date: 02/24/20 Requesting physician: Vinicius Hope Primary Care Provider: Adolfo Medrano M.D., F.A.A.F.P. Consult Narrative Chief complaint: Fall, SOb Reason for consult: Sepsis, Resp failure History of present illness: Ms. Theodore is a 59-year-old with a history of anxiety disorder/recent fall on 02/21, in the ER and was discharged home on conservative management. She subsequently fell twice getting off balance while she was on crutches. She presented to the ER for evaluation on and underwent surgery for greater trochanter fracture with periprosthetic extension into the total hip by Dr. Hope orthopedics. Postoperatively hospitalist service was consulted as patient was found be tachycardic/hypoxic requiring 6-8 L oxygen and chest x-ray suggestive of left- sided pneumonia along with white count over 22,000. Patient was seen in immediate postoperative phase. Fairly short of breath requiring 8 L of oxygen maintaining sats around 90s. Patient was initiated on noninvasive ventilation due to increased work of breathing and profound hypoxemia. Blood gas/stat chest imaging was ordered along with blood cultures and patient was started on broad-spectrum antibiotic coverage. COVID-19 PCR was ordered. Patient is being moved to intensive care unit due to persistent hemodynamic instability tachycardia at 130/tachypnea @40's and hypoxic respiratory failure requiring NIV and a large AA gradient on ABG with PaO2 65 on 6 L O2/PaO2 FiO2 ratio less than 150 Patient was able to answer most the question, denies chest pain but feels weak and short of breath and frequently coughing. She appears very anxious. She denies aspiration episodes or recurrent pneumonia. She further denies sick contacts. She is able to provide history as above. Denies fever, chills, chest pain, headache Review of systems 10 point review system was performed and is negative except for 1 discussed cc:: CC: Vinicius Hope [facility] PFSH All Active Problems (Updated 02/22/20 @ 11:47 by Flo Wiggins MD) Cervical disc disease (Acute) Hx of total shoulder replacement (Acute) Closed fracture of greater trochanter of right femur (Acute) Muscle spasm (Acute) Chronic right shoulder pain (Chronic) Encounter for Health Maintenance Examination in Adult (Chronic) Low back pain of thoracolumbar region with sciatica (Chronic) History of shoulder surgery (Chronic) Status post right knee replacement (Chronic) History of left knee replacement (Chronic) History of total knee arthroplasty (Chronic 05/03/13) History of hysterectomy (Chronic) History of right hip replacement (Chronic) History of hand surgery (Chronic) History of carpal tunnel repair (Chronic) History of blood transfusion (Chronic) History of back surgery (Chronic) History of tobacco use (Chronic) Closed rib fracture (Chronic) Osteoporosis screening (Chronic) Hormone replacement therapy (Chronic) Fibromyalgia (Chronic) Dyspepsia (Chronic) Depression (Chronic) Degenerative joint disease (Chronic) Carpal tunnel syndrome (Chronic) Medical History (Updated 02/22/20 @ 11:47 by Flo Wiggins MD) Carpal tunnel syndrome (Chronic) Bilateral carpal tunnel--Nerve conduction 03/2011. Left Carpal Pam op 03/2011. Closed rib fracture (Chronic) Fifth thru seventh ribs anteriorly. Degenerative joint disease (Chronic) DJD with multiple surgeries. 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 See comprehensive review dictation of 12/2011. Depression (Chronic) Hx; currently stable off medications, but for sleep we will have her try some Trazodone, patient will report. Dyspepsia (Chronic) Hx of chronic; requires high-dose Zantac for stability, but it is quite stable. Encounter for Health Maintenance Examination in Adult (Chronic) Fibromyalgia (Chronic) History of tobacco use (Chronic) Ex-smoker; quit 05/2007. Chest x-ray 07/2010. Hormone replacement therapy (Chronic) S/P complete hysterectomy in distant past for non-cancerous reasons; estrogen replacement therapy. Breast exam with cystic change. Low back pain of thoracolumbar region with sciatica (Chronic) Osteoporosis screening (Chronic) Normal bone density 07/2010 with a T-score of -0.5 at the hip and +0.2 at the wrist; slightly low vitamin D level of 22.0 in 07/2010 with dosing corrected. Surgical History H/O colonoscopy (Chronic) 05/01/2015-[facility] History of back surgery (Chronic) 2004 History of blood transfusion (Chronic) Has had a blood transfusion in the past, but none of these were before 1991. She would not require screening for hepatitis C. History of carpal tunnel repair (Chronic) 03/2011 Bilateral carpal tunnel--Nerve conduction 03/2011. Left Carpal Tunnel op 03/2011. History of hand surgery (Chronic) Multiple surgeries on her hand History of hysterectomy (Chronic) Complete History of left knee replacement (Chronic) 2001 History of right hip replacement (Chronic) 2004 History of shoulder surgery (Chronic) 1993 right shoulder; 1994 left shoulder History of total knee arthroplasty (Chronic 05/03/13) RIGHT Status post right knee replacement (Chronic) 2000 Family History Mother Anemia Had pernicious anemia Diabetes mellitus and in several older family members Sister Anemia Had pernicious anemia Social History (Updated 08/19/19 @ 08:46 by Adolfo Medrano MD, FAAFP) household members: alone housing: house lives independently: Yes marital status: occupational status: retired occupation: Sales Analyst other: Exposure to second hand smoke smoking status: Never smoker alcohol intake frequency: a few times a month substance use type: does not use MEDS/ALLERGIES Home Medications and Allergies Home Medications Medication Instructions Recorded Confirmed Type echinacea 400 mg PO BID 04/06/19 02/24/20 History magnesium oxide 400 mg PO DAILY 04/06/19 02/24/20 History turmeric root extract 500 mg PO BID 04/06/19 02/24/20 History duloxetine 60 mg capsule,delayed 60 mg PO BID@0800,1800 #180 cap 09/13/19 02/24/20 Rx release meloxicam 15 mg tablet 15 mg PO DAILY #90 tab 11/25/19 02/24/20 Rx oxycodone-acetaminophen 5 mg-325 1 tab PO Q8H PRN 30 Days #90 tab 02/03/20 02/24/20 Rx mg tablet gabapentin 300 mg capsule See Rx Instructions .ROUTE 02/08/20 02/24/20 Rx .COMPLEX #90 cap cyclobenzaprine 10 mg PO TID PRN #30 tab 02/22/20 02/24/20 Rx aspirin 325 mg PO BID #30 tab 02/24/20 Rx docusate sodium 100 mg PO BID #60 cap 02/24/20 Rx hydrocodone-acetaminophen 1 - 2 tab PO Q4HP PRN #75 tab 02/24/20 Rx Allergies Allergy/AdvReac Type Severity Reaction Status Date / Time meperidine AdvReac Mild Nausea Verified 08/19/19 07:57 EXAM Constitutional Vitals: Temp Pulse Resp BP Pulse Ox 98.1 F 113 H 24 H 144/75 93 02/24/20 15:16 02/24/20 15:16 02/24/20 15:16 02/24/20 15:16 02/24/20 15:16 Alert but anxious. Moderate respirator distress Head normocephalic Oral cavity moist No ear nose discharge Eye movement symmetrical Neck supple no lymphadenopathy S1-S2 tachycardia at 130 Labored/rapid breathing in mid 30s Nondistended nontender abdomen Right lower extremity surgery site no swelling, no cyanosis clubbing or joint swelling Skin no suspicious lesion Psych no hallucination Neuro normal higher function DATA Data Completed and Pending Labs: Labs from last 24 hours 02/24/20 02/24/20 02/24/20 12:15 12:15 12:15 WBC 22.4 H RBC 4.26 Hgb 13.2 Hct 39.9 MCV 93.7 MCH 31.0 MCHC 33.1 RDW 13.7 Plt Count 310 MPV 11.1 H Neut % (Auto) 87.8 H Lymph % (Auto) 6.3 L [place] % (Auto) 5.5 Eos % (Auto) 0 Baso % (Auto) 0.4 Lymph # (Auto) 1.41 L [place] # (Auto) 1.23 H Eos # (Auto) 0.01 Baso # (Auto) 0.08 Absolute Neutrophils 19.68 H PT 13.5 INR 1.0 Sodium 134 Potassium 3.9 Chloride 100 Carbon Dioxide 21 L Anion Gap 13.0 BUN 17 Creatinine 0.6 GFR Calculation 99 Glucose 137 H Calcium 9.7 SARS-CoV-2 (PCR) 02/24/20 12:11 WBC RBC Hgb Hct MCV MCH MCHC RDW Plt Count MPV Neut % (Auto) Lymph % (Auto) [place] % (Auto) Eos % (Auto) Baso % (Auto) Lymph # (Auto) [place] # (Auto) Eos # (Auto) Baso # (Auto) Absolute Neutrophils PT INR Sodium Potassium Chloride Carbon Dioxide Anion Gap BUN Creatinine GFR Calculation Glucose Calcium SARS-CoV-2 (PCR) TNP A/P Narrative A/P Narrative: * Right hip fracture-continue postop management per orthopedics * DVT Prophylaxis/pain management as per orthopedics HOSPITALIST CONSULT * Severe sepsis with endorgan dysfunction-pancultures/broad antibiotic coverage/crystalloid/management per guidelines. White count 22.4. Await lactic acid * Left lower lobe pneumonia likely nosocomial versus aspiration. Initiate empiric broad antibiotic coverage. Rule out Covid 19. Continue aspiration question * Acute respiratory failure with hypoxemia requiring 8 L oxygen. Now transition to noninvasive ventilation ABG 7.3 /65 on 6 L oxygen. PaO2/FiO2 ratio less than 150. Transfer to ICU * Anxiety disorder continue as needed anxiolytics. Plan * Transfer to ICU * Noninvasive ventilation/blood cultures/antibiotic * ABG/interval imaging * Pressors if indicated * Broad-spectrum antibiotics * Patient critically ill managing ICU care. Initial [place] 2 score 18 Time spent on initial consultation 70 minutes Additional 35 minutes critical care time spent on management of hypoxic re spiratory failure/severe sepsis/NIV management/ABG, EKG and imaging review Time Spent With Patient Time: Total time spent is greater than 50% in coordination of care (as documented) at patient's floor/unit and/or counseling patient: Total time spent with greater than 50% in coordination of care (as documented) at patient's floor/unit and/or counseling patient:: Greater than 35 minutes
[2020-02-24] MEDS ORDERED: LEVOFLOXACIN 750 MG/150 ML BAG IV SCH (17:00)
--- NOTE | 2020-02-24 17:36 | XRay Report ---
INDICATION: Post-op Total Hip TECHNIQUE: AP pelvis. AP and crosstable lateral right hip COMPARISON: Preoperative evaluation dated 02/22/2020 FINDINGS: Previous examination demonstrated right total hip arthroplasty. There is a periprosthetic right greater trochanteric fracture. Status post open reduction and internal fixation. There is a plate and multiple wires present. Alignment is anatomic. IMPRESSION: Status post open reduction and internal fixation of periprosthetic greater trochanteric fracture Interpreted and Authenticated by: Turner Viera 02/24/20
[2020-02-24] MEDS ORDERED: DULoxetine 30 MG CAPSULE PO SCH (18:00)
[2020-02-24] MEDS ORDERED: PIPERACILLIN SODIUM/TAZOBACTAM 3.375 GM in DEXTROSE 5% IN WATER 50 ML IV SCH (18:00)
--- NOTE | 2020-02-24 18:09 | XRay Report ---
INDICATION: SOB TECHNIQUE: AP portable upright chest x-ray COMPARISON: None FINDINGS: Lungs:Lungs are negative. No focal pulmonary parenchymal infiltrate or mass Heart, vascular:No significant cardiomegaly. Pulmonary vascularity is normal. No pulmonary edema or pulmonary congestion Mediastinum, kristal:No mediastinal widening. No hilar mass Pleura:No pleural fluid. No pleural-based mass or calcification Skeletal:Negative. IMPRESSION: Negative AP chest x-ray Interpreted and Authenticated by: Turner Viera 02/24/20
[2020-02-24] MEDS: 0.9 % SODIUM CHLORIDE 1,000 ML IV SCH ×2 (18:20→19:31)
[2020-02-24] MEDS ORDERED: 0.9 % SODIUM CHLORIDE 500 ML IV ONE (18:39)
[2020-02-24] MEDS: VANCOMYCIN 1,500 MG in 0.9 % SODIUM CHLORIDE 500 ML IV SCH (18:46)
[2020-02-24] MEDS: GABAPENTIN 300 MG CAPSULE PO SCH (19:39)
[2020-02-24] MEDS: DULoxetine 30 MG CAPSULE PO SCH (19:39)
[2020-02-24] MEDS: ASPIRIN 325 MG ENTERIC COATED TABLET PO SCH (19:39)
[2020-02-24] MEDS: CYCLOBENZAPRINE 10 MG TABLET PO PRN (19:40)
[2020-02-24] MEDS: HYDROcodone/APAP 10/325MG TABLET PO PRN (19:40)
[2020-02-24] MEDS: LEVOFLOXACIN 750 MG/150 ML BAG IV SCH (19:42)
[2020-02-24] MEDS: DOCUSATE SODIUM 100 MG CAPSULE PO SCH (19:42)
[2020-02-24] MEDS: 0.9 % SODIUM CHLORIDE 10 ML SYRINGE IV SCH ×2 (19:43→21:31)
[2020-02-24] MEDS ORDERED: ceFAZolin 1 GM VIAL IV SCH (20:30)
[2020-02-24] MEDS: PIPERACILLIN SODIUM/TAZOBACTAM 3.375 GM in DEXTROSE 5% IN WATER 50 ML IV SCH (20:30)
[2020-02-24] MEDS ORDERED: DOCUSATE SODIUM 100 MG CAPSULE PO SCH ×2 (21:00)
[2020-02-24] MEDS ORDERED: SENNOSIDES 1 TABLET PO SCH ×2 (21:00)
[2020-02-24] MEDS ORDERED: ASPIRIN 325 MG ENTERIC COATED TABLET PO SCH (21:00)
[2020-02-24] MEDS ORDERED: HEPARIN 5,000 UNIT/ML VIAL SQ SCH (21:00)
[2020-02-24] MEDS ORDERED: TEMAZEPAM 15 MG CAPSULE PO PRN ×2 (21:00)
[2020-02-24] MEDS ORDERED: TURMERIC ROOT EXTRACT 500 MG PO SCH (21:00)
[2020-02-24] MEDS ORDERED: ECHINACEA 400 MG PO SCH (21:00)
[2020-02-24] MEDS ORDERED: SENNOSIDES/DOCUSATE SODIUM 1 TAB TABLET PO SCH (21:00)
[2020-02-25] MEDS: PIPERACILLIN SODIUM/TAZOBACTAM 3.375 GM in DEXTROSE 5% IN WATER 50 ML IV SCH ×5 (02:18→23:21)
[2020-02-25] MEDS: HYDROcodone/APAP 10/325MG TABLET PO PRN ×6 (02:22→22:57)
[2020-02-25] MEDS: 0.9 % SODIUM CHLORIDE 10 ML SYRINGE IV SCH ×3 (05:34→21:41)
[2020-02-25 07:00] LABS: Basophils # (Auto) 0.01 K/mcL (0.00-0.20); Basophils % (Auto) 0.1 % (0.0-2.0); Eosinophils # (Auto) 0 K/mcL (0.00-0.70); Eosinophils % (Auto) 0 % (0.0-7.0); Hematocrit 30.5 % (36.0-48.0); Lymphocytes # (Auto) 1.26 K/mcL (1.50-4.80); Mean Cell Volume 94.7 fL (80.0-100.0); Mean Corpuscular HGB Conc 32.8 g/dL (31.0-36.0); Mean Platelet Volume 11.3 fL (7.4-10.4); Monocytes # (Auto) 1.31 K/mcL (0.10-0.90); Monocytes % (Auto) 7.3 % (1.0-12.0); Neutrophils % (Auto) 85.6 % (38.0-78.0); Platelet Count 277 K/mcL (140-440); RBC 3.22 M/mcL (4.00-5.20); Red Cell Distribution Width 13.4 % (11.5-14.5); WBC 17.9 K/mcL (4.5-11.0)
[2020-02-25] MEDS: DULoxetine 30 MG CAPSULE PO SCH ×2 (07:11→17:45)
[2020-02-25 08:09] LABS: ALT/SGPT 12 U/L (<40); AST/SGOT 23 U/L (<32); Albumin 3.7 gm/dL (3.2-5.2); Albumin/Globulin Ratio 1.4 (1.0-2.3); Alkaline Phosphatase 58 U/L (39-117); Bilirubin,Direct 0.2 mg/dL (<0.3); Bilirubin,Total 1.1 mg/dL (0.1-1.0); Blood Urea Nitrogen 15 mg/dL (6-20); Carbon Dioxide 23 mmol/L (22-30); Chloride 97 mmol/L (96-108); Globulin 2.6 gm/dL (2.2-3.7); Glomerular Filtration Rate 99; Glucose 124 mg/dL (70-105); Lactate Dehydrogenase 250 U/L (135-225); Phosphorous 2.6 mg/dL (2.5-4.5); Triglycerides 74 mg/dL (<150); Uric Acid 2.2 mg/dL (2.5-8.0)
[2020-02-25] MEDS: ASPIRIN 325 MG ENTERIC COATED TABLET PO SCH ×2 (08:24→21:30)
[2020-02-25] MEDS: GABAPENTIN 300 MG CAPSULE PO SCH ×3 (08:24→21:30)
[2020-02-25] MEDS: DOCUSATE SODIUM 100 MG CAPSULE PO SCH ×2 (08:24→21:29)
[2020-02-25] MEDS ORDERED: MULTIVIT,THER IRON,CA,FA & MIN 1 TABLET PO SCH ×2 (09:00)
[2020-02-25] MEDS ORDERED: MAGNESIUM OXIDE 400 MG TABLET PO SCH ×2 (09:00)
--- NOTE | 2020-02-25 09:11 | Internal Med Progress Note ---
SUBJECTIVE Subjective Patient information: Note initiated : 02/25/20 at 9:07 am Service Date, if different from initiated Date: [] Patient: Yaneth Theodore a 59 y/o F admitted on 02/24/20 for Right Hip Open Reduction Internal Fixation. Chief Complaint: [] Interval history: Ms. Theodore is a 59-year-old with a history of anxiety disorder/recent fall on 02/21, in the ER and was discharged home on conservative management. She subsequently fell twice getting off balance while she was on crutches. She presented to the ER for evaluation on and underwent surgery for greater trochanter fracture with periprosthetic extension into the total hip by Dr. Hope orthopedics. Postoperatively hospitalist service was consulted as patient was found be ta chycardic/hypoxic requiring 6-8 L oxygen and chest x-ray suggestive of left- sided pneumonia along with white count over 22,000. Patient was seen in immediate postoperative phase. Fairly short of breath requiring 8 L of oxygen maintaining sats around 90s. Patient was initiated on noninvasive ventilation due to increased work of breathing and profound hypoxemia. Blood gas/stat chest imaging was ordered along with blood cultures and patient was started on broad-spectrum antibiotic coverage. COVID-19 PCR was ordered. Patient is being moved to intensive care unit due to persistent hemodynamic instability tachycardia at 130/tachypnea @40's and hypoxic respiratory failure requiring NIV and a large AA gradient on ABG with PaO2 65 on 6 L O2/PaO2 FiO2 ratio less than 150 Patient was able to answer most the question, denies chest pain but feels weak and short of breath and frequently coughing. She appears very anxious. She denies aspiration episodes or recurrent pneumonia. She further denies sick contacts. She is able to provide history as above. Denies fever, chills, chest pain, headache 02/24-patient clinically improved. Now off noninvasive ventilation. Currently on 3 days oxygen. Feels a lot better. White count down to 17.2. Hypoxemia improving, interval chest imaging improving, stabilizing hemodynamics. Postop pain much improved. Plan to de-escalate antibiotic coverage in 24-hour. Await sputum culture sensitivities Constitutional Vitals: Vital Signs Temp Pulse Resp BP Pulse Ox 97.6 F 97 H 21 116/96 95 02/25/20 08:00 02/25/20 08:00 02/25/20 08:00 02/25/20 08:00 02/25/20 08:00 Period Temp Pulse Resp BP Sys/Knowles Pulse Ox Last 24 Hr 96.5 F-98.1 F 82-138 9-31 116-164/67-110 87-100 Intake and Output 02/24/20 02/25/20 02/25/20 21:59 05:59 13:59 Intake Total 3950 370 50 Output Total 500 675 300 Balance 3450 -305 -250 Weight 96.615 kg 96.615 kg Patient Weight 02/26/20 05:59 Weight 96.615 kg Alert oriented on 3 L oxygen Minimally labored breathing No anxiety Nondistended abdomen Postoperative site no swelling Intake & Output: Intake & Output 02/24/20 02/25/20 02/25/20 21:59 05:59 13:59 Intake Total 3950 370 50 Output Total 500 675 300 Balance 3450 -305 -250 Weight 96.615 kg 96.615 kg Intake: IV 1650 50 50 Sodium Chloride 0.9% 1,000 ml @ 1000 Wide Open IV BOLUS [facility] Rx#: [id number] Sodium Chloride 0.9% 500 ml @ 500 Wide Open IV BOLUS ONE Rx#: [id number] Zosyn 3.375 gm In Dextrose 5% 50 50 50 in Water 50 ml @ 100 mls/hr IV Q6H [facility] Rx#:[id number] Oral 100 320 IV - Manual Only 2200 Output: Void Amount 200 675 300 Estimated Blood Loss 300 Other: Meal Nourishment/Supplement Percent of Meal Consumed 100% Nourishment/Supplement name applesauce Urine Appearance Clear Urine Color Dark Yellow Dark Yellow Dark Yellow # Bowel Movements 0 OBJ DATA Labs CBC & Chem 7: 02/25/20 04:30 02/25/20 04:30 Labs: Abnormal Lab Results 02/25/20 02/25/20 02/24/20 04:30 04:30 12:15 WBC 17.9 H RBC 3.22 L Hgb 10.0 L Hct 30.5 L MPV 11.3 H Neut % (Auto) 85.6 H Lymph % (Auto) 7.0 L Lymph # (Auto) 1.26 L [place] # (Auto) 1.31 H Absolute Neutrophils 15.31 H Carbon Dioxide Glucose 124 H Uric Acid 2.2 L Total Bilirubin 1.1 H Lactate Dehydrogenase 250 H C-Reactive Protein Procalcitonin 0.10 H 02/24/20 02/24/20 02/24/20 12:15 12:15 12:15 WBC 22.4 H RBC Hgb Hct MPV 11.1 H Neut % (Auto) 87.8 H Lymph % (Auto) 6.3 L Lymph # (Auto) 1.41 L [place] # (Auto) 1.23 H Absolute Neutrophils 19.68 H Carbon Dioxide 21 L Glucose 137 H Uric Acid Total Bilirubin Lactate Dehydrogenase C-Reactive Protein 17.30 H Procalcitonin Meds: Medications Acetaminophen (Tylenol) 650 mg PO Q6HP PRN; Protocol PRN Reason: Per Pain Protocol/Fever > 101 Hydrocodone Bitart/Acetaminophen ([place] 10/325mg) 0 tab PO Q4HP PRN; Protocol PRN Reason: Per Pain Protocol Last Admin: 02/25/20 08:22 Dose: 2 tab Documented by: Aspirin (Ecotrin) 325 mg PO BID [facility] Last Admin: 02/25/20 08:24 Dose: 325 mg Documented by: Bisacodyl (Dulcolax) 10 mg [place] Q2-3DAYS PRN PRN Reason: Constipation Cyclobenzaprine HCl (Flexeril) 10 mg PO TIDP PRN PRN Reason: Muscle Spasm Last Admin: 02/24/20 19:40 Dose: 10 mg Documented by: Docusate Sodium (Colace) 100 mg PO BID [facility] Last Admin: 02/25/20 08:24 Dose: 100 mg Documented by: Duloxetine HCl (Cymbalta) 60 mg PO BID@0800,1800 [facility] Last Admin: 02/25/20 07:11 Dose: 60 mg Documented by: Gabapentin (Neurontin) 300 mg PO TID [facility] Last Admin: 02/25/20 08:24 Dose: 300 mg Documented by: Hydromorphone HCl (Dilaudid) 0 mg IV Q2HP PRN; Protocol PRN Reason: Per Pain Protocol Vancomycin HCl 1,500 mg/ (Sodium Chloride) 500 mls @ 333.3 mls/hr IV Q12H [facility] Last Admin: 02/24/20 18:46 Dose: 333.3 mls/hr Documented by: Sodium Chloride (Sodium Chloride 0.9%) 1,000 mls @ 50 mls/hr IV .Q20H [facility] Stop: 02/27/20 05:49 Last Admin: 02/24/20 19:31 Dose: 50 mls/hr Documented by: Sodium Chloride (Sodium Chloride 0.9%) 1,000 mls @ 0 mls/hr IV BOLUS [facility] Last Admin: 02/24/20 18:20 Dose: Not Given Documented by: Acetaminophen (Ofirmev) 650 mg in 65 mls @ 130 mls/hr IV Q6HP PRN; Protocol PRN Reason: Per Pain Protocol/Fever > 101 Levofloxacin (Levaquin) 750 mg in 150 mls @ 100 mls/hr IV DAILY NOAM; Protocol Last Admin: 02/24/20 19:42 Dose: 100 mls/hr Documented by: Magnesium Sulfate (Magnesium Sulfate) 2 gm in 50 mls @ 50 mls/hr IV UD PRN PRN Reason: MG = or < 1.7 Piperacillin Sod/Tazobactam (Sod 3.375 gm/ Dextrose) 50 mls @ 100 mls/hr IV Q6H [facility]AM; Protocol Last Infusion: 02/25/20 08:19 Dose: Infused Documented by: Potassium Chloride 40 meq/ (Dextrose) 520 mls @ 130 mls/hr IV UD PRN PRN Reason: K+ = or < 3.5 Iron Carb/Multivit/[place]/Folic Acid (Multivitamin W/Minerals) 1 tab PO DAILY [facility] Last Admin: 02/25/20 08:23 Dose: 1 tab Documented by: Magnesium Hydroxide (Milk Of Magnesia) 30 ml PO BIDP PRN PRN Reason: Constipation Magnesium Oxide (Magnesium Oxide) 400 mg PO DAILY [facility] Last Admin: 02/25/20 08:23 Dose: 400 mg Documented by: Ondansetron HCl (Zofran Odt) 4 mg SL Q4-6HP PRN; Protocol PRN Reason: Nausea And Vomiting Ondansetron HCl (Zofran) 4 mg IV Q4HP PRN; Protocol PRN Reason: Nausea And Vomiting Polyethylene Glycol (Miralax) 17 gm PO DAILYP PRN PRN Reason: Constipation Potassium Chloride (Klor-Con) 40 meq PO DAILYP PRN PRN Reason: K+ < 3.5 Senna (Senokot) 2 tab PO HS [facility] Last Admin: 02/24/20 19:42 Dose: Not Given Documented by: Sodium Biphosphate/Sodium Phosphate (Fleets Adult) 1 dose [place] Q3-4DAYS PRN PRN Reason: Constipation Sodium Chloride (Saline Flush) 10 ml IV Q8 [facility] Last Admin: 02/25/20 05:34 Dose: 10 ml Documented by: Temazepam (Restoril) 15 mg PO HSP PRN PRN Reason: Insomnia Vancomycin HCl (Vancomycin Per Pharmacy) 1 order IV UD [facility]; Protocol A/P Narrative A/P Narrative: * Right hip fracture-postop day 2. Continue postop management per orthopedics * DVT Prophylaxis/pain management as per orthopedics HOSPITALIST CONSULT * Severe sepsis with endorgan dysfunction-pancultures/broad antibiotic coverage/crystalloid/management per guidelines. White count downtrending. Clinically improving. * Left lower lobe pneumonia likely nosocomial versus aspiration. Clinical improvement noted on interval imaging. Continue empiric broad antibiotic coverage. Covid negative. Continue aspiration precautions * Acute respiratory failure with hypoxemia-clinically improving. Now requiring 3 days oxygen. Wean NIV as tolerated. Repeat ABG 7.4 on 45% FiO2 BiPAP. Improving AA gradient * Anxiety disorder continue as needed anxiolytics. Plan * Wean noninvasive ventilation as tolerated * Broad antibiotic coverage * Postop care per orthopedics * Therapy/nutrition support * Transition to medical floor once hemodynamics stabilized Critical care time spent 35 minutes Time Spent With Patient Time: Total time spent is greater than 50% in coordination of care (as documented) at patient's floor/unit and/or counseling patient: QUALITY VTE Deep Vein Thrombosis/Pulmonary Embolism Present on Admission: No
[2020-02-25] MEDS ORDERED: FLU VACC QS2020-21(6MOS UP)/PF 60 MCG/0.5 ML SYRINGE IM ONE (10:00)
[2020-02-25] MEDS ORDERED: MAG HYDROX/AL HYDROX/SIMETH 30 ML ORAL.SUSP PO PRN (10:31)
[2020-02-25] MEDS: VANCOMYCIN 1,500 MG in 0.9 % SODIUM CHLORIDE 500 ML IV SCH ×2 (10:42→21:31)
[2020-02-25] MEDS: LEVOFLOXACIN 750 MG/150 ML BAG IV SCH (12:10)
[2020-02-25] MEDS: CYCLOBENZAPRINE 10 MG TABLET PO PRN ×2 (12:12→21:30)
[2020-02-25] MEDS: 0.9 % SODIUM CHLORIDE 1,000 ML IV SCH ×2 (15:28→17:58)
[2020-02-25] MEDS ORDERED: ACETAMINOPHEN 325 MG TABLET PO PRN (18:17)
[2020-02-25] MEDS ORDERED: HYDROmorphone 1 MG/ML SYRINGE IV PRN (18:17)
[2020-02-25] MEDS ORDERED: ONDANSETRON 4 MG/2 ML VIAL IV PRN (18:17)
[2020-02-25] MEDS ORDERED: VANCOMYCIN PER PHARMACY IV SCH (18:17)
[2020-02-25] MEDS ORDERED: POLYETHYLENE GLYCOL 3350 17 GM PACKET PO PRN (18:17)
[2020-02-25] MEDS ORDERED: ONDANSETRON 4 MG ODT TABLET SL PRN (18:17)
[2020-02-25] MEDS ORDERED: MAGNESIUM HYDROXIDE 30 ML ORAL.SUSP PO PRN (18:17)
[2020-02-25] MEDS ORDERED: BISACODYL 10 MG SUPP.RECT PR PRN (18:17)
[2020-02-25] MEDS: SENNOSIDES 1 TABLET PO SCH (21:25)
[2020-02-26] MEDS: HYDROcodone/APAP 10/325MG TABLET PO PRN ×4 (04:17→18:50)
[2020-02-26] MEDS: PIPERACILLIN SODIUM/TAZOBACTAM 3.375 GM in DEXTROSE 5% IN WATER 50 ML IV SCH (05:10)
[2020-02-26] MEDS: 0.9 % SODIUM CHLORIDE 10 ML SYRINGE IV SCH ×3 (05:11→22:10)
[2020-02-26 06:41] LABS: Basophils # (Auto) 0.03 K/mcL (0.00-0.20); Basophils % (Auto) 0.2 % (0.0-2.0); Eosinophils # (Auto) 0.15 K/mcL (0.00-0.70); Eosinophils % (Auto) 1.2 % (0.0-7.0); Hematocrit 25.4 % (36.0-48.0); Hemoglobin 8.3 g/dL (12.0-15.0); Lymphocytes # (Auto) 2.43 K/mcL (1.50-4.80); Lymphocytes % (Auto) 19.7 % (15.0-49.0); Mean Cell Volume 94.1 fL (80.0-100.0); Mean Corpuscular HGB Conc 32.7 g/dL (31.0-36.0); Monocytes # (Auto) 1.27 K/mcL (0.10-0.90); Monocytes % (Auto) 10.3 % (1.0-12.0); Neutrophils % (Auto) 68.6 % (38.0-78.0); Platelet Count 264 K/mcL (140-440); Red Cell Distribution Width 13.5 % (11.5-14.5); WBC 12.3 K/mcL (4.5-11.0)
[2020-02-26 07:04] LABS: ALT/SGPT 12 U/L (<40); AST/SGOT 24 U/L (<32); Albumin 3.3 gm/dL (3.2-5.2); Albumin/Globulin Ratio 1.4 (1.0-2.3); Alkaline Phosphatase 62 U/L (39-117); Bilirubin,Direct < 0.2 mg/dL (<0.3); Bilirubin,Total 0.9 mg/dL (0.1-1.0); Blood Urea Nitrogen 12 mg/dL (6-20); Calcium 8.8 mg/dL (8.6-10.4); Carbon Dioxide 28 mmol/L (22-30); Chloride 100 mmol/L (96-108); Globulin 2.4 gm/dL (2.2-3.7); Glomerular Filtration Rate 99; Glucose 100 mg/dL (70-105); Lactate Dehydrogenase 247 U/L (135-225); Phosphorous 2.4 mg/dL (2.5-4.5); Triglycerides 86 mg/dL (<150); Uric Acid 1.7 mg/dL (2.5-8.0)
[2020-02-26] MEDS: DULoxetine 30 MG CAPSULE PO SCH ×2 (07:51→17:27)
[2020-02-26] MEDS: GABAPENTIN 300 MG CAPSULE PO SCH ×3 (07:51→22:09)
[2020-02-26] MEDS: ASPIRIN 325 MG ENTERIC COATED TABLET PO SCH ×2 (07:51→22:09)
[2020-02-26] MEDS: DOCUSATE SODIUM 100 MG CAPSULE PO SCH ×2 (07:52→22:09)
[2020-02-26] MEDS: MAGNESIUM OXIDE 400 MG TABLET PO SCH (07:52)
[2020-02-26] MEDS: LEVOFLOXACIN 750 MG/150 ML BAG IV SCH (08:14)
--- NOTE | 2020-02-26 09:20 | XRay Report ---
INDICATION: Interval Change TECHNIQUE: AP portable upright chest x-ray COMPARISON: Previous chest x-rays dated 02/24/2020 at 1632, 02/24/2020 at at 1509, 02/22/2020 at 1019 FINDINGS:Bilateral reverse shoulder arthroplasty Lungs:Mild elevation of the left hemidiaphragm. There are left lung infiltrates. Left basilar infiltrates may be secondary to volume loss. Appearance is similar to 02/24/2020 at 1509 but worse since 02/24/2020 at 1632. The transient nature of these infiltrates and volume loss suggests that this appearance is not due to infection. Fine loss secondary to mucous plugging or diaphragmatic splinting should be considered. Right lung is negative Heart, vascular:No significant cardiomegaly. Pulmonary vascularity is normal. No pulmonary edema or pulmonary congestion Mediastinum, kristal:No mediastinal widening. No hilar mass Pleura:No pleural fluid. No pleural-based mass or calcification Skeletal:Negative. IMPRESSION: 1. Left lung volume loss and basilar infiltrate 2. Findings are worse since 02/24/2020 at 1632 but similar to 02/24/2020 1509 Interpreted and Authenticated by: Turner Viera 02/26/20
[2020-02-26] MEDS: VANCOMYCIN 1,500 MG in 0.9 % SODIUM CHLORIDE 500 ML IV SCH (09:48)
--- NOTE | 2020-02-26 17:37 | Internal Med Progress Note ---
SUBJECTIVE Subjective Patient information: Note initiated : 02/26/20 at 5:27 pm Service Date, if different from initiated Date: [] Patient: Yaneth Theodore 59 y/o F admitted on 02/24/20 for Right Hip Open Reduction Internal Fixation. Chief Complaint: [shortness of breath] Interval history: Ms. Theodore is a 59-year-old with a history of anxiety disorder/recent fall on 02/21, in the ER and was discharged home on conservative management. She subsequently fell twice getting off balance while she was on crutches. She presented to the ER for evaluation on and underwent surgery for greater trochanter fracture with periprosthetic extension into the total hip by Dr. Hope orthopedics. Postoperatively hospitalist service was consulted as patient was found be tachycardic/hypoxic requiring 6-8 L oxygen and chest x-ray suggestive of left-sided pneumonia along with white count over 22,000. The patient was started on broad-spectrum antibiotics for hospital-acquired pneumonia. 02/24-patient clinically improved. Now off noninvasive ventilation. Currently on 3 days oxygen. Feels a lot better. White count down to 17.2. Hypoxemia improving, interval chest imaging improving, stabilizing hemodynamics. Postop pain much improved. Plan to de-escalate antibiotic coverage in 24-hour. Await sputum culture sensitivities. 02/25-patient now on room air, sputum culture preliminary growing rare gram- negative bacilli. MRSA nasal PCR negative. Blood culturesNGTD. Antibiotics deescalated to levofloxacin. Constitutional Vitals: Vital Signs Temp Pulse Resp BP Pulse Ox 97.5 F 106 H 24 H 117/70 97 02/26/20 16:00 02/26/20 16:00 02/26/20 16:00 02/26/20 16:00 02/26/20 16:00 Period Temp Pulse Resp BP Sys/Knowles Pulse Ox Last 24 Hr 97.2 F-97.6 F 95-111 15-25 111-136/67-81 91-98 Intake and Output 02/26/20 02/26/20 02/26/20 05:59 13:59 21:59 Intake Total 1360 150 240 Output Total 975 625 300 Balance 385 -475 -60 Intake & Output: Intake & Output 02/26/20 02/26/20 02/26/20 05:59 13:59 21:59 Intake Total 1360 150 240 Output Total 975 625 300 Balance 385 -475 -60 Intake: IV 600 150 Zosyn 3.375 gm In Dextrose 5% 100 in Water 50 ml @ 100 mls/hr IV Q6H NOAM Rx#:[id number] Vancomycin 1,500 mg In Sodium 500 Chloride 0.9% 500 ml @ 333.3 mls/hr IV Q12H NOAM Rx#: [id number] Oral 760 240 Output: Void Amount 975 625 300 Other: Meal Breakfast Percent of Meal Consumed 75% Urine Appearance Clear Clear Clear Urine Color Dark Yellow Light Karen Light Karen Urine Odor Strong Normal # Bowel Movements 0 Head Head exam: Present atraumatic and normal inspection Eye Eye exam: Present normal appearance Neck Neck exam: Present full ROM Respiratory Respiratory exam: Present rales; Absent accessory muscle use and respiratory distress Cardiovascular Cardiovascular exam: Present tachycardia GI/Abdominal GI/Abdominal exam: Present soft; Absent distended and tenderness Extremities Exam Additional comments: Right hip incision covered in clean bandage. Neurological Exam Neurological exam: Present CN II-XII intact and oriented X3 Psychiatric Psychiatric exam: Present normal affect and normal mood Skin Skin exam: Present normal color and warm OBJ DATA Labs CBC & Chem 7: 02/26/20 04:58 02/26/20 04:58 Labs: Abnormal Lab Results 02/26/20 02/26/20 02/25/20 04:58 04:58 04:30 WBC 12.3 H RBC 2.70 L Hgb 8.3 L Hct 25.4 L MPV 11.0 H Neut % (Auto) Lymph % (Auto) Lymph # (Auto) [place] # (Auto) 1.27 H Absolute Neutrophils 8.45 H Carbon Dioxide Glucose 124 H Uric Acid 1.7 L 2.2 L Phosphorus 2.4 L Total Bilirubin 1.1 H Lactate Dehydrogenase 247 H 250 H C-Reactive Protein Total Protein 5.7 L Procalcitonin 02/25/20 02/24/20 02/24/20 04:30 12:15 12:15 WBC 17.9 H RBC 3.22 L Hgb 10.0 L Hct 30.5 L MPV 11.3 H Neut % (Auto) 85.6 H Lymph % (Auto) 7.0 L Lymph # (Auto) 1.26 L [place] # (Auto) 1.31 H Absolute Neutrophils 15.31 H Carbon Dioxide Glucose Uric Acid Phosphorus Total Bilirubin Lactate Dehydrogenase C-Reactive Protein 17.30 H Total Protein Procalcitonin 0.10 H 02/24/20 02/24/20 12:15 12:15 WBC 22.4 H RBC Hgb Hct MPV 11.1 H Neut % (Auto) 87.8 H Lymph % (Auto) 6.3 L Lymph # (Auto) 1.41 L [place] # (Auto) 1.23 H Absolute Neutrophils 19.68 H Carbon Dioxide 21 L Glucose 137 H Uric Acid Phosphorus Total Bilirubin Lactate Dehydrogenase C-Reactive Protein Total Protein Procalcitonin Meds: Medications Acetaminophen (Tylenol) 650 mg PO Q6HP PRN; Protocol PRN Reason: Per Pain Protocol/Fever > 101 Hydrocodone Bitart/Acetaminophen ([place] 10/325mg) 0 tab PO Q4HP PRN; Protocol PRN Reason: Per Pain Protocol Last Admin: 02/26/20 14:33 Dose: 2 tab Documented by: Aspirin (Ecotrin) 325 mg PO BID [facility] Last Admin: 02/26/20 07:51 Dose: 325 mg Documented by: Bisacodyl (Dulcolax) 10 mg [place] Q2-3DAYS PRN PRN Reason: Constipation Cyclobenzaprine HCl (Flexeril) 10 mg PO TIDP PRN PRN Reason: Muscle Spasm Last Admin: 02/25/20 21:30 Dose: 10 mg Documented by: Docusate Sodium (Colace) 100 mg PO BID [facility] Last Admin: 02/26/20 07:52 Dose: 100 mg Documented by: Duloxetine HCl (Cymbalta) 60 mg PO BID@0800,1800 [facility] Last Admin: 02/26/20 07:51 Dose: 60 mg Documented by: Gabapentin (Neurontin) 300 mg PO TID [facility] Last Admin: 02/26/20 16:24 Dose: 300 mg Documented by: Levofloxacin (Levaquin) 750 mg in 150 mls @ 100 mls/hr IV DAILY [facility]; Protocol Last Infusion: 02/26/20 09:48 Dose: Infused Documented by: Magnesium Hydroxide (Milk Of Magnesia) 30 ml PO BIDP PRN PRN Reason: Constipation Last Admin: 02/26/20 11:53 Dose: 30 ml Documented by: Magnesium Oxide (Magnesium Oxide) 400 mg PO DAILY [facility] Last Admin: 02/26/20 07:52 Dose: 400 mg Documented by: Ondansetron HCl (Zofran Odt) 4 mg SL Q4-6HP PRN; Protocol PRN Reason: Nausea And Vomiting Ondansetron HCl (Zofran) 4 mg IV Q4HP PRN; Protocol PRN Reason: Nausea And Vomiting Polyethylene Glycol (Miralax) 17 gm PO DAILYP PRN PRN Reason: Constipation Senna (Senokot) 2 tab PO HS [facility] Last Admin: 02/25/20 21:25 Dose: 2 tab Documented by: Sodium Chloride (Saline Flush) 10 ml IV Q8 [facility] Last Admin: 02/26/20 14:34 Dose: 10 ml Documented by: A/P Narrative A/P Narrative: Assessment: 59-year-old female developed acute hypoxic respiratory failure from pneumonia after ORIF right greater trochanteric. #Acute hypoxic respiratory failure, resolved #Pneumonia, left lower lobe Acute hypoxic respiratory failure resolved, still has dyspnea with exertion. Gram stain was positive for gram-positive cocci in pairs, sputum culture preliminary growing gram-negative bacilli. MRSA nasal PCR was negative. Antibiotics deescalated to levofloxacin, discontinue vancomycin IV Zosyn. Treat for 7 days. Follow final sputum culture results, follow-up blood cultures. Monitor respiratory status. #Right greater trochanter placed fracture status post ORIFstable, aspirin 325 mg twice daily for DVT prophylaxis per Ortho. As needed analgesics, discontinued IV Dilaudid. wound cares, follow-up with Ortho after discharge. #Depressionon duloxetine. #DVT prophylaxisaspirin 325 mg twice daily per Ortho. Time Spent With Patient Time: Total time spent is greater than 50% in coordination of care (as documented) at patient's floor/unit and/or counseling patient: Total time spent with greater than 50% in coordination of care (as documented) at patient's floor/unit and/or counseling patient:: Greater than 35 minutes QUALITY VTE Deep Vein Thrombosis/Pulmonary Embolism Present on Admission: No
[2020-02-26] MEDS: SENNOSIDES 1 TABLET PO SCH (22:09)
[2020-02-26] MEDS: CYCLOBENZAPRINE 10 MG TABLET PO PRN (22:32)
[2020-02-27] MEDS: HYDROcodone/APAP 10/325MG TABLET PO PRN ×4 (00:46→19:55)
[2020-02-27] MEDS: 0.9 % SODIUM CHLORIDE 10 ML SYRINGE IV SCH ×3 (04:00→20:41)
[2020-02-27 06:49] LABS: Basophils # (Auto) 0.06 K/mcL (0.00-0.20); Basophils % (Auto) 0.5 % (0.0-2.0); Eosinophils # (Auto) 0.36 K/mcL (0.00-0.70); Eosinophils % (Auto) 3.2 % (0.0-7.0); Hematocrit 26.1 % (36.0-48.0); Hemoglobin 8.5 g/dL (12.0-15.0); Lymphocytes # (Auto) 2.88 K/mcL (1.50-4.80); Lymphocytes % (Auto) 25.3 % (15.0-49.0); Mean Cell Volume 94.9 fL (80.0-100.0); Mean Corpuscular HGB Conc 32.6 g/dL (31.0-36.0); Mean Platelet Volume 10.7 fL (7.4-10.4); Monocytes # (Auto) 1.04 K/mcL (0.10-0.90); Monocytes % (Auto) 9.1 % (1.0-12.0); Neutrophils % (Auto) 61.9 % (38.0-78.0); Platelet Count 307 K/mcL (140-440); RBC 2.75 M/mcL (4.00-5.20); Red Cell Distribution Width 13.4 % (11.5-14.5); WBC 11.4 K/mcL (4.5-11.0)
[2020-02-27 07:14] LABS: ALT/SGPT 13 U/L (<40); AST/SGOT 24 U/L (<32); Albumin 3.3 gm/dL (3.2-5.2); Albumin/Globulin Ratio 1.2 (1.0-2.3); Alkaline Phosphatase 62 U/L (39-117); Bilirubin,Direct < 0.2 mg/dL (<0.3); Bilirubin,Total 0.7 mg/dL (0.1-1.0); Blood Urea Nitrogen 11 mg/dL (6-20); Carbon Dioxide 30 mmol/L (22-30); Chloride 100 mmol/L (96-108); Globulin 2.7 gm/dL (2.2-3.7); Glomerular Filtration Rate 105; Glucose 101 mg/dL (70-105); Lactate Dehydrogenase 220 U/L (135-225); Phosphorous 3.2 mg/dL (2.5-4.5); Triglycerides 84 mg/dL (<150); Uric Acid 2.1 mg/dL (2.5-8.0)
[2020-02-27] MEDS: DULoxetine 30 MG CAPSULE PO SCH ×2 (07:14→18:49)
[2020-02-27] MEDS ORDERED: FUROSEMIDE 20 MG/2 ML VIAL IV ONE ×2 (08:52→17:49)
[2020-02-27] MEDS: LEVOFLOXACIN 750 MG/150 ML BAG IV SCH (09:11)
[2020-02-27] MEDS: GABAPENTIN 300 MG CAPSULE PO SCH ×3 (09:12→20:40)
[2020-02-27] MEDS: MAGNESIUM OXIDE 400 MG TABLET PO SCH (09:12)
[2020-02-27] MEDS: ASPIRIN 325 MG ENTERIC COATED TABLET PO SCH ×2 (09:12→20:41)
[2020-02-27] MEDS: DOCUSATE SODIUM 100 MG CAPSULE PO SCH ×2 (09:12→20:41)
--- NOTE | 2020-02-27 19:34 | Internal Med Progress Note ---
SUBJECTIVE Subjective Patient information: Note initiated : 02/27/20 at 7:33 pm Service Date, if different from initiated Date: [] Patient: Yaneth Theodore 59 y/o F admitted on 02/24/20 for Right Hip Open Reduction Internal Fixation. Chief Complaint: [] Constitutional Vitals: Vital Signs Temp Pulse Resp BP Pulse Ox 97.6 F 95 H 18 128/72 94 02/27/20 15:40 02/27/20 15:40 02/27/20 15:40 02/27/20 15:40 02/27/20 15:40 Period Temp Pulse Resp BP Sys/Knowles Pulse Ox Last 24 Hr 97.3 F-97.9 F 89-99 18-18 121-130/72-76 90-99 Intake and Output 02/27/20 02/27/20 02/27/20 05:59 13:59 21:59 Intake Total 300 990 300 Output Total 1500 2050 600 Balance -1200 -1060 -300 Intake & Output: Intake & Output 02/27/20 02/27/20 02/27/20 05:59 13:59 21:59 Intake Total 300 990 300 Output Total 1500 2050 600 Balance -1200 -1060 -300 Intake: IV 150 Oral 300 840 300 Output: Urine Catheter Amount 350 Void Amount 1500 1700 600 Other: Meal Dinner Lunch Percent of Meal Consumed 75% 25% Feeding Ability Assist with Tray Set Up Urine Appearance Clear Clear Clear Urine Color Straw Straw Straw OBJ DATA Labs CBC & Chem 7: 02/28/20 05:31 02/28/20 05:31 Labs: Abnormal Lab Results 02/27/20 02/27/20 02/26/20 05:14 05:14 04:58 WBC 11.4 H RBC 2.75 L Hgb 8.5 L Hct 26.1 L MPV 10.7 H Neut % (Auto) Lymph % (Auto) Lymph # (Auto) [place] # (Auto) 1.04 H Absolute Neutrophils Creatinine 0.5 L Glucose Uric Acid 2.1 L 1.7 L Phosphorus 2.4 L Total Bilirubin Lactate Dehydrogenase 247 H Total Protein 5.7 L 02/26/20 02/25/20 02/25/20 04:58 04:30 04:30 WBC 12.3 H 17.9 H RBC 2.70 L 3.22 L Hgb 8.3 L 10.0 L Hct 25.4 L 30.5 L MPV 11.0 H 11.3 H Neut % (Auto) 85.6 H Lymph % (Auto) 7.0 L Lymph # (Auto) 1.26 L [place] # (Auto) 1.27 H 1.31 H Absolute Neutrophils 8.45 H 15.31 H Creatinine Glucose 124 H Uric Acid 2.2 L Phosphorus Total Bilirubin 1.1 H Lactate Dehydrogenase 250 H Total Protein Meds: Medications Acetaminophen (Tylenol) 650 mg PO Q6HP PRN; Protocol PRN Reason: Per Pain Protocol/Fever > 101 Hydrocodone Bitart/Acetaminophen ([place] 10/325mg) 0 tab PO Q4HP PRN; Protocol PRN Reason: Per Pain Protocol Last Admin: 02/27/20 13:42 Dose: 2 tab Documented by: Aspirin (Ecotrin) 325 mg PO BID [facility] Last Admin: 02/27/20 09:12 Dose: 325 mg Documented by: Bisacodyl (Dulcolax) 10 mg [place] Q2-3DAYS PRN PRN Reason: Constipation Cyclobenzaprine HCl (Flexeril) 10 mg PO TIDP PRN PRN Reason: Muscle Spasm Last Admin: 02/26/20 22:32 Dose: 10 mg Documented by: Docusate Sodium (Colace) 100 mg PO BID [facility] Last Admin: 02/27/20 09:12 Dose: 100 mg Documented by: Duloxetine HCl (Cymbalta) 60 mg PO BID@0800,1800 [facility] Last Admin: 02/27/20 18:49 Dose: 60 mg Documented by: Gabapentin (Neurontin) 300 mg PO TID [facility] Last Admin: 02/27/20 15:40 Dose: 300 mg Documented by: Levofloxacin (Levaquin) 750 mg in 150 mls @ 100 mls/hr IV DAILY [facility]; Protocol Last Infusion: 02/27/20 10:45 Dose: Infused Documented by: Magnesium Hydroxide (Milk Of Magnesia) 30 ml PO BIDP PRN PRN Reason: Constipation Last Admin: 02/26/20 11:53 Dose: 30 ml Documented by: Magnesium Oxide (Magnesium Oxide) 400 mg PO DAILY [facility] Last Admin: 02/27/20 09:12 Dose: 400 mg Documented by: Ondansetron HCl (Zofran Odt) 4 mg SL Q4-6HP PRN; Protocol PRN Reason: Nausea And Vomiting Ondansetron HCl (Zofran) 4 mg IV Q4HP PRN; Protocol PRN Reason: Nausea And Vomiting Polyethylene Glycol (Miralax) 17 gm PO DAILYP PRN PRN Reason: Constipation Senna (Senokot) 2 tab PO HS [facility] Last Admin: 02/26/20 22:09 Dose: 2 tab Documented by: Sodium Chloride (Saline Flush) 10 ml IV Q8 [facility] Last Admin: 02/27/20 13:44 Dose: 10 ml Documented by: A/P Assessment and plan (1) Hip fracture: Status: Acute (2) Pneumonia: Status: Acute (3) Acute respiratory failure with hypoxia: Status: Acute Time Spent With Patient Time: Total time spent is greater than 50% in coordination of care (as documented) at patient's floor/unit and/or counseling patient: QUALITY VTE Deep Vein Thrombosis/Pulmonary Embolism Present on Admission: No
--- NOTE | 2020-02-27 19:44 | Internal Med Progress Note ---
SUBJECTIVE Subjective Patient information: Note initiated : 02/27/20 at 7:35 pm Service Date, if different from initiated Date: [] Patient: Yaneth Theodore a 59 y/o F admitted on 02/24/20 for Right Hip Open Reduction Internal Fixation. Chief Complaint: [hip fracture] Interval history: Ms. Theodore is a 59-year-old with a history of anxiety disorder/recent fall on 02/21, in the ER and was discharged home on conservative management. She subsequently fell twice getting off balance while she was on crutches. She presented to the ER for evaluation on and underwent surgery for greater trochanter fracture with periprosthetic extension into the total hip by Dr. Hope orthopedics. Postoperatively hospitalist service was consulted as patient was found be tachycardic/hypoxic requiring 6-8 L oxygen and chest x-ray suggestive of left-sided pneumonia along with white count over 22,000. The patient was started on broad-spectrum antibiotics for hospital-acquired pneumonia. 02/24-patient clinically improved. Now off noninvasive ventilation. Currently on 3 days oxygen. Feels a lot better. White count down to 17.2. Hypoxemia improving, interval chest imaging improving, stabilizing hemodynamics. Postop pain much improved. Plan to de-escalate antibiotic coverage in 24-hour. Await sputum culture sensitivities. 02/25-patient now on room air, sputum culture preliminary growing rare gram- negative bacilli. MRSA nasal PCR negative. Blood culturesNGTD. Antibiotics deescalated to levofloxacin. 02/26-breathing improved after a dose of lasix 20 mg IV. Constitutional Vitals: Vital Signs Temp Pulse Resp BP Pulse Ox 97.6 F 95 H 18 128/72 94 02/27/20 15:40 02/27/20 15:40 02/27/20 15:40 02/27/20 15:40 02/27/20 15:40 Period Temp Pulse Resp BP Sys/Knowles Pulse Ox Last 24 Hr 97.3 F-97.9 F 89-99 18-18 121-130/72-76 90-99 Intake and Output 02/27/20 02/27/20 02/27/20 05:59 13:59 21:59 Intake Total 300 990 300 Output Total 1500 2050 600 Balance -1200 -1060 -300 Intake & Output: Intake & Output 12/02/27/20 02/27/20 05:59 13:59 21:59 Intake Total 300 990 300 Output Total 1500 2050 600 Balance -1200 -1060 -300 Intake: IV 150 Oral 300 840 300 Output: Urine Catheter Amount 350 Void Amount 1500 1700 600 Other: Meal Dinner Lunch Percent of Meal Consumed 75% 25% Feeding Ability Assist with Tray Set Up Urine Appearance Clear Clear Clear Urine Color Straw Straw Straw Head Head exam: Present atraumatic and normal inspection Eye Eye exam: Present normal appearance ENT ENT exam: Present mucous membranes moist, normal exam and normal external ear exam Neck Neck exam: Present normal inspection Respiratory Respiratory exam: Present rales; Absent accessory muscle use and wheezes Cardiovascular Cardiovascular exam: Present normal rate and rhythm GI/Abdominal GI/Abdominal exam: Present normal bowel sounds Extremities Exam Additional comments: Left hip surgical incision covered with clean bandage. Back Exam Back exam: Present normal inspection Neurological Exam Neurological exam: Present alert and oriented X3 Skin Skin exam: Present intact and warm OBJ DATA Labs CBC & Chem 7: 02/27/20 05:14 02/27/20 05:14 Labs: Abnormal Lab Results 02/27/20 02/27/20 02/26/20 05:14 05:14 04:58 WBC 11.4 H RBC 2.75 L Hgb 8.5 L Hct 26.1 L MPV 10.7 H Neut % (Auto) Lymph % (Auto) Lymph # (Auto) [place] # (Auto) 1.04 H Absolute Neutrophils Creatinine 0.5 L Glucose Uric Acid 2.1 L 1.7 L Phosphorus 2.4 L Total Bilirubin Lactate Dehydrogenase 247 H Total Protein 5.7 L 02/26/20 02/25/20 02/25/20 04:58 04:30 04:30 WBC 12.3 H 17.9 H RBC 2.70 L 3.22 L Hgb 8.3 L 10.0 L Hct 25.4 L 30.5 L MPV 11.0 H 11.3 H Neut % (Auto) 85.6 H Lymph % (Auto) 7.0 L Lymph # (Auto) 1.26 L [place] # (Auto) 1.27 H 1.31 H Absolute Neutrophils 8.45 H 15.31 H Creatinine Glucose 124 H Uric Acid 2.2 L Phosphorus Total Bilirubin 1.1 H Lactate Dehydrogenase 250 H Total Protein Meds: Medications Acetaminophen (Tylenol) 650 mg PO Q6HP PRN; Protocol PRN Reason: Per Pain Protocol/Fever > 101 Hydrocodone Bitart/Acetaminophen ([place] 10/325mg) 0 tab PO Q4HP PRN; Protocol PRN Reason: Per Pain Protocol Last Admin: 02/27/20 13:42 Dose: 2 tab Documented by: Aspirin (Ecotrin) 325 mg PO BID [facility] Last Admin: 02/27/20 09:12 Dose: 325 mg Documented by: Bisacodyl (Dulcolax) 10 mg [place] Q2-3DAYS PRN PRN Reason: Constipation Cyclobenzaprine HCl (Flexeril) 10 mg PO TIDP PRN PRN Reason: Muscle Spasm Last Admin: 02/26/20 22:32 Dose: 10 mg Documented by: Docusate Sodium (Colace) 100 mg PO BID [facility] Last Admin: 02/27/20 09:12 Dose: 100 mg Documented by: Duloxetine HCl (Cymbalta) 60 mg PO BID@0800,1800 [facility] Last Admin: 02/27/20 18:49 Dose: 60 mg Documented by: Gabapentin (Neurontin) 300 mg PO TID [facility] Last Admin: 02/27/20 15:40 Dose: 300 mg Documented by: Levofloxacin (Levaquin) 750 mg in 150 mls @ 100 mls/hr IV DAILY [facility]; Protocol Last Infusion: 02/27/20 10:45 Dose: Infused Documented by: Magnesium Hydroxide (Milk Of Magnesia) 30 ml PO BIDP PRN PRN Reason: Constipation Last Admin: 02/26/20 11:53 Dose: 30 ml Documented by: Magnesium Oxide (Magnesium Oxide) 400 mg PO DAILY [facility] Last Admin: 02/27/20 09:12 Dose: 400 mg Documented by: Ondansetron HCl (Zofran Odt) 4 mg [place] Q4-6HP PRN; Protocol PRN Reason: Nausea And Vomiting Ondansetron HCl (Zofran) 4 mg IV Q4HP PRN; Protocol PRN Reason: Nausea And Vomiting Polyethylene Glycol (Miralax) 17 gm PO DAILYP PRN PRN Reason: Constipation Senna (Senokot) 2 tab PO HS [facility] Last Admin: 02/26/20 22:09 Dose: 2 tab Documented by: Sodium Chloride (Saline Flush) 10 ml IV Q8 [facility] Last Admin: 02/27/20 13:44 Dose: 10 ml Documented by: A/P Narrative A/P Narrative: Assessment: 59-year-old female developed acute hypoxic respiratory failure from pneumonia after ORIF right greater trochanteric. #Acute hypoxic respiratory failure, improved #Pneumonia, left lower lobe Acute hypoxic respiratory failure improving, still has dyspnea with exertion which seems to have improved after lasix 20 mg IV. Gram stain was positive for gram-positive cocci in pairs, sputum culture preliminary growing gram-negative bacilli. MRSA nasal PCR was negative. Continue Levofloxacin, treat for 7 days. Follow final sputum culture results, follow-up blood cultures. Lasix 20 mg IV tonight, monitor respiratory status. #Right greater trochanter placed fracture status post ORIFstable, aspirin 325 mg twice daily for DVT prophylaxis per Ortho. As needed analgesics, follow-up with Ortho after discharge. #Depressionon duloxetine. #DVT prophylaxisaspirin 325 mg twice daily per Ortho. Time Spent With Patient Time: Total time spent is greater than 50% in coordination of care (as documented) at patient's floor/unit and/or counseling patient: Total time spent with greater than 50% in coordination of care (as documented) at patient's floor/unit and/or counseling patient:: 25 - 35 minutes QUALITY VTE Deep Vein Thrombosis/Pulmonary Embolism Present on Admission: No
[2020-02-27] MEDS: SENNOSIDES 1 TABLET PO SCH (20:41)
[2020-02-27] MEDS: CYCLOBENZAPRINE 10 MG TABLET PO PRN (20:45)
[2020-02-28] MEDS: HYDROcodone/APAP 10/325MG TABLET PO PRN ×3 (02:49→14:53)
[2020-02-28] MEDS: 0.9 % SODIUM CHLORIDE 10 ML SYRINGE IV SCH ×2 (06:37→14:00)
[2020-02-28 06:55] LABS: Basophils # (Auto) 0.07 K/mcL (0.00-0.20); Basophils % (Auto) 0.7 % (0.0-2.0); Eosinophils # (Auto) 0.36 K/mcL (0.00-0.70); Eosinophils % (Auto) 3.6 % (0.0-7.0); Hemoglobin 9.5 g/dL (12.0-15.0); Lymphocytes # (Auto) 2.19 K/mcL (1.50-4.80); Lymphocytes % (Auto) 21.7 % (15.0-49.0); Mean Cell Volume 93.2 fL (80.0-100.0); Mean Corpuscular HGB Conc 32.8 g/dL (31.0-36.0); Mean Platelet Volume 10.3 fL (7.4-10.4); Monocytes # (Auto) 0.99 K/mcL (0.10-0.90); Monocytes % (Auto) 9.8 % (1.0-12.0); Neutrophils % (Auto) 64.2 % (38.0-78.0); Platelet Count 383 K/mcL (140-440); RBC 3.11 M/mcL (4.00-5.20); Red Cell Distribution Width 13.4 % (11.5-14.5); WBC 10.1 K/mcL (4.5-11.0)
[2020-02-28] MEDS: DULoxetine 30 MG CAPSULE PO SCH (07:15)
[2020-02-28 07:32] LABS: ALT/SGPT 14 U/L (<40); AST/SGOT 22 U/L (<32); Albumin 3.5 gm/dL (3.2-5.2); Albumin/Globulin Ratio 1.3 (1.0-2.3); Alkaline Phosphatase 68 U/L (39-117); Bilirubin,Direct < 0.2 mg/dL (<0.3); Bilirubin,Total 0.8 mg/dL (0.1-1.0); Blood Urea Nitrogen 13 mg/dL (6-20); Calcium 9.4 mg/dL (8.6-10.4); Carbon Dioxide 30 mmol/L (22-30); Chloride 95 mmol/L (96-108); Globulin 2.7 gm/dL (2.2-3.7); Glomerular Filtration Rate 105; Glucose 108 mg/dL (70-105); Lactate Dehydrogenase 233 U/L (135-225); Phosphorous 4.5 mg/dL (2.5-4.5); Triglycerides 90 mg/dL (<150); Uric Acid 2.8 mg/dL (2.5-8.0)
[2020-02-28] MEDS: ASPIRIN 325 MG ENTERIC COATED TABLET PO SCH (08:19)
[2020-02-28] MEDS: DOCUSATE SODIUM 100 MG CAPSULE PO SCH (08:19)
[2020-02-28] MEDS: MAGNESIUM OXIDE 400 MG TABLET PO SCH (08:20)
[2020-02-28] MEDS: GABAPENTIN 300 MG CAPSULE PO SCH ×2 (08:21→16:22)
[2020-02-28] MEDS ORDERED: LEVOFLOXACIN 750 MG/150 ML BAG IV SCH (09:00)
--- NOTE | 2020-02-28 11:09 | Discharge Summary ---
Discharge Provider Provider Patient information: Note initiated : 02/28/20 at 11:00 am Service Date, if different from initiated Date: [] Patient: Yaneth Theodore 59 y/o F admitted on 02/24/20 for Right Hip Open Reduction Internal Fixation. Chief Complaint: [shortness of breath] Date of admission: 02/24/20 17:26 Discharge date: 02/28/20 Primary care physician: Adolfo Medrano M.D., F.A.A.F.P. Consults: 02/24/20 Consult to Physician [CONS] Stat Comment: productive cough with high white count Consulting Provider: Yehuda Zambrano Reason For Exam: Physician to Consult Discharge Meds Discharge Medications Home Medications magnesium oxide 400 mg PO DAILY 04/06/19 [History Confirmed 02/24/20 Last Taken 02/23/20] turmeric root extract 500 mg PO BID 04/06/19 [History Confirmed 02/24/20 Last Taken 02/22/20] duloxetine 60 mg capsule,delayed release 60 mg PO BID@0800,1800 #180 cap 09/13/19 [Rx Confirmed 02/24/20 Last Taken 02/24/20] meloxicam 15 mg tablet 15 mg PO DAILY #90 tab 11/25/19 [Rx Confirmed 02/24/20 Last Taken 02/21/20] gabapentin 300 mg capsule See Rx Instructions .ROUTE .COMPLEX #90 cap 02/08/20 [Rx Confirmed 02/24/20 Last Taken 02/23/20] cyclobenzaprine 10 mg PO TID PRN #30 tab 02/22/20 [Rx Confirmed 02/24/20 Last Taken 02/24/20] aspirin 325 mg PO BID #30 tab 02/24/20 [Rx Last Taken Unknown] docusate sodium 100 mg PO BID #60 cap 02/24/20 [Rx Last Taken Unknown] acetaminophen [Tylenol] 325 mg PO Q6HP PRN #30 tab 02/28/20 [Rx Last Taken Unknown] aspirin 325 mg PO BID 28 Days #56 tab 02/28/20 [Rx Last Taken Unknown] hydrocodone-acetaminophen 1 tab PO Q4HP PRN #12 tab 02/28/20 [Rx Last Taken Un known] levofloxacin 500 mg PO QDAY 3 Days #3 tab 02/28/20 [Rx Last Taken Unknown] magnesium hydroxide [Milk of Magnesia] 30 ml PO BIDP PRN 30 Days ml 02/28/20 [Rx Last Taken Unknown] polyethylene glycol 3350 [Miralax] 17 gm PO DAILYP PRN #30 ea 02/28/20 [Rx Last Taken Unknown] sennosides [Senna Lax] 2 tab PO HS #30 tab 02/28/20 [Rx Last Taken Unknown] COURSE Hospital Course Hospital course: Ms. Theodore is a 59-year-old with a history of anxiety disorder/recent fall on 02/21, visited the ED and was discharged home on conservative management. She subsequently fell twice getting off balance while she was on crutches. She presented to the ED again for evaluation on 02/23 and underwent surgery for greater trochanter fracture with periprosthetic extension into the total hip by Dr. Hope orthopedics. Postoperatively hospitalist service was consulted as patient was found be tachycardic/hypoxic requiring 6-8 L oxygen and chest x-ray suggestive of left-sided pneumonia along with white count over 22,000. The patient was admitted to the ICU, started on broad- spectrum antibiotics for hospital-acquired pneumonia. The patient clinically improved with antibiotics, hypoxia and leukocytosis resolved. Sputum gram stain was positive for gram positive cocci in pairs, culture grew rarte intracellular and extracellular small gram negative bacilli but no identification was made by the discharge date. MRSA nasal PCR was negative. COVID PCR negative. Antibiotics were deescalated to levofloxacin. She was given a couple doses of lasix 20 mg IV which improved her dyspnea. She felt near baseline and declined discharge to a SNF for rehab. She was discharged to home with home health and will complete a short course of antibiotics therapy at home with levofloxacin. Discharge diagnosis: Pneumonia Secondary discharge diagnosis: Acute hypoxic respiratory failure, resolved Time Spent with Patient Time attestation: Total time spent providing and/or coordinating discharge services: Time spent: Greater than 30 minutes EXAM Constitutional Vitals: Temp Pulse Resp BP Pulse Ox 97.7 F 87 18 113/59 96 02/28/20 08:00 02/28/20 08:00 02/28/20 08:00 02/28/20 08:00 02/28/20 08:00 Head Head exam: Present atraumatic and normal inspection Eye Eye exam: Present normal appearance; Absent scleral icterus Neck Neck exam: Present full ROM Respiratory Respiratory exam: Present rales; Absent accessory muscle use and respiratory distress Cardiovascular Cardiovascular exam: Present normal rate and rhythm GI/Abdominal GI/Abdominal exam: Present soft; Absent distended and tenderness Extremities Exam Additional comments: Right hip incision covered in clean bandage. Neurological Exam Neurological exam: Present CN II-XII intact and oriented X3 Psychiatric Psychiatric exam: Present normal affect and normal mood Skin Skin exam: Present normal color and warm Discharge Data Data Completed and Pending Labs on day of discharge: Labs from last 24 hours 02/28/20 02/28/20 05:31 05:31 WBC 10.1 RBC 3.11 L Hgb 9.5 L Hct 29.0 L MCV 93.2 MCH 30.5 MCHC 32.8 RDW 13.4 Plt Count 383 MPV 10.3 Neut % (Auto) 64.2 Lymph % (Auto) 21.7 [place] % (Auto) 9.8 Eos % (Auto) 3.6 Baso % (Auto) 0.7 Lymph # (Auto) 2.19 [place] # (Auto) 0.99 H Eos # (Auto) 0.36 Baso # (Auto) 0.07 Absolute Neutrophils 6.50 Sodium 136 Potassium 3.9 Chloride 95 L Carbon Dioxide 30 Anion Gap 11.0 BUN 13 Creatinine 0.5 L GFR Calculation 105 Glucose 108 H Uric Acid 2.8 Calcium 9.4 Phosphorus 4.5 Magnesium 2.1 Total Bilirubin 0.8 Direct Bilirubin < 0.2 GGT 15 AST 22 ALT 14 Alkaline Phosphatase 68 Lactate Dehydrogenase 233 H Total Protein 6.2 Albumin 3.5 Globulin 2.7 Albumin/Globulin Ratio 1.3 Triglycerides 90 Preliminary micro results at discharge 02/24/20 17:13 Blood Culture - Preliminary Blood 02/24/20 17:00 Blood Culture - Preliminary Blood Discharge Plan Patient/Caregiver Discharge Instructions Activity: ambulate only with your walker and as per physical therapy Diet: Regular Diet Prescriptions: New aspirin 325 mg Tablet,Delayed Release (Dr/Ec) 325 mg PO BID Qty: 30 RF: 0 docusate sodium 100 mg Capsule 100 mg PO BID Qty: 60 RF: 0 acetaminophen [Tylenol] 325 mg Tablet 325 mg PO Q6HP PRN (Reason: Per Pain Protocol/Fever > 101) Qty: 30 RF: 1 aspirin 325 mg Tablet,Delayed Release (Dr/Ec) 325 mg PO BID 28 Days Qty: 56 RF: 0 hydrocodone-acetaminophen 5-325 mg tablet 1 tab PO Q4HP PRN (Reason: Per Pain Protocol) Qty: 12 RF: 0 sennosides [Senna Lax] 8.6 mg Tablet 2 tab PO HS Qty: 30 RF: 0 polyethylene glycol 3350 [Miralax] 17 gram Powder In Packet 17 gm PO DAILYP PRN (Reason: Constipation) Qty: 30 RF: 0 magnesium hydroxide [Milk of Magnesia] 400 mg/5 mL Suspension 30 ml PO BIDP PRN (Reason: Constipation) 30 Days RF: 0 levofloxacin 500 mg tablet 500 mg PO QDAY 3 Days Qty: 3 RF: 0 Continued duloxetine 60 mg capsule,delayed release(DR/EC) 60 mg PO BID@0800,1800 Qty: 180 RF: 4 meloxicam 15 mg tablet 15 mg PO DAILY Qty: 90 RF: 4 gabapentin 300 mg capsule See Rx Instructions .ROUTE .COMPLEX Qty: 90 RF: 0 turmeric root extract 500 MG capsule 500 mg PO BID RF: 0 magnesium oxide 400 MG tablet 400 mg PO DAILY RF: 0 cyclobenzaprine 10 mg tablet 10 mg PO TID PRN (Reason: muscle spasm) Qty: 30 RF: 0 Discontinued oxycodone-acetaminophen 5-325 mg tablet 1 tab PO Q8H PRN (Reason: shoulder pain) 30 Days Qty: 90 RF: 0 echinacea 400 MG capsule 400 mg PO BID RF: 0 Other Ambulatory Orders: Physical Therapy DC - EDU (Routine) Location: None Selected Ordered By: Srikanth Arceo Toilet Riser Discharge Order (ONCE) Location: None Selected Ordered By: Srikanth rAceo Walker (ONCE) Location: None Selected Ordered By: Srikanth Arceo Follow Up Plan Follow up with: Srikanth Arceo PA-C [Physician Patents Examiner] - Patient Disposition: Home Health Service Prognosis: Good Rehab Potential: Good I certify that the patient requires SNF services: No Overall status at discharge: patient is progressing back to baseline Discharge Orders: Discharge Order (Routine); Ordered 02/28/20 Ordered By: Art Benjamin Interventions Interventions: Discharge Vital Signs Last Done: 02/24/20 12:17 QUALITY VTE Deep Vein Thrombosis/Pulmonary Embolism Present on Admission: No
[2020-02-28] MEDS ORDERED: CALCIUM CARBONATE 500 MG TAB.CHEW CHEWED PRN (11:39)
[2020-02-28] MEDS: CYCLOBENZAPRINE 10 MG TABLET PO PRN (14:55)
== END 2020-02-28 15:10 | disposition home health service (06) | DRG 480 ==
LOC: MEDSUROUT 11:29 → MEDSUR 11:36 → ICU 17:25 → MEDSUR 02-26 14:10
PROVIDERS: ADMIT Internal Medicine; ATTEND Internal Medicine

== ENCOUNTER 2024-07-02 05:24 | Inpatient (IN) ==
[2024-07-02 06:17] LABS: Basophils # (Auto) 0.06 K/mcL (0.00-0.30); Basophils % (Auto) 0.7 % (0.0-2.0); Eosinophils # (Auto) 0.26 K/mcL (0.00-0.70); Eosinophils % (Auto) 2.8 % (0.0-7.0); Hematocrit 40.3 % (34.1-44.9); Hemoglobin 12.7 g/dL (11.2-15.7); Lymphocytes # (Auto) 1.71 K/mcL (1.50-4.80); Lymphocytes % (Auto) 18.6 % (15.5-49.0); Mean Cell Volume 89.2 fL (80.0-100.0); Mean Corpuscular HGB Conc 31.5 g/dL (31.0-36.0); Mean Platelet Volume 10.6 fL (8.8-12.5); Monocytes # (Auto) 0.51 K/mcL (0.10-0.90); Monocytes % (Auto) 5.5 % (1.0-12.0); Neutrophils % (Auto) 72.2 % (38.0-78.0); Platelet Count 302 K/mcL (140-440); RBC 4.52 M/mcL (3.59-5.38); Red Cell Distribution Width 15.1 % (11.5-14.5); WBC 9.2 K/mcL (4.5-11.0)
[2024-07-02 06:24] LABS: ALT/SGPT 10 U/L (<40); AST/SGOT 14 U/L (<32); Albumin/Globulin Ratio 1.5 (1.0-2.3); Alkaline Phosphatase 77 U/L (39-117); Bilirubin,Total 0.4 mg/dL (0.1-1.0); Blood Urea Nitrogen 14 mg/dL (8-23); Carbon Dioxide 23 mmol/L (22-30); Chloride 103 mmol/L (96-108); Globulin 2.7 gm/dL (2.2-3.7); Glomerular Filtration Rate 110; Glucose 140 mg/dL (70-105); Potassium 3.9 mmol/L (3.3-5.1); Sodium 137 mmol/L (133-145)
[2024-07-02 06:28] LABS: INR 0.9 (0.9-1.1); Prothrombin Time 12.9 sec (11.9-14.5)
[2024-07-02 06:35] LABS: Partial Thromboplastin Time 26.3 sec (20.0-37.0)
[2024-07-02] MEDS: fentaNYL 100 MCG/2 ML VIAL IV ONE (07:07)
[2024-07-02] MEDS: HYDROmorphone 1 MG/ML SYRINGE IV ONE (08:35)
[2024-07-02] MEDS ORDERED: ACETAMINOPHEN 325 MG TABLET PO PRN ×2 (10:17→17:04)
[2024-07-02] MEDS ORDERED: ONDANSETRON 4 MG/2 ML VIAL IV PRN (10:17)
[2024-07-02] MEDS ORDERED: IPRATROPIUM/ALBUTEROL 3 ML AMPUL.NEB NEB PRN (10:17)
[2024-07-02] MEDS: HYDROmorphone 1 MG/ML SYRINGE IV PRN (11:26)
[2024-07-02] MEDS: 0.9 % SODIUM CHLORIDE 10 ML SYRINGE IV SCH (13:41)
[2024-07-02] MEDS: oxyCODONE/APAP 5/325MG TABLET PO PRN (15:37)
[2024-07-02] MEDS: GABAPENTIN 300 MG CAPSULE PO SCH (15:37)
[2024-07-02] MEDS ORDERED: BISACODYL 10 MG SUPP.RECT PR PRN (17:04)
[2024-07-02] MEDS ORDERED: ONDANSETRON 4 MG ODT TABLET SL PRN (17:04)
[2024-07-02] MEDS ORDERED: HYDROCODONE/APAP 7.5/325MG TABLET PO PRN (17:04)
[2024-07-02] MEDS ORDERED: POLYETHYLENE GLYCOL 3350 17 GM PACKET PO PRN (17:04)
[2024-07-02] MEDS ORDERED: FLEETS ADULT 1 DOSE ENEMA PR PRN (17:04)
[2024-07-02] MEDS ORDERED: MAGNESIUM HYDROXIDE 30 ML ORAL.SUSP PO PRN (17:04)
[2024-07-02] MEDS ORDERED: METHOCARBAMOL 1,000 MG/10 ML VIAL IV PRN (17:04)
[2024-07-02] MEDS ORDERED: PROMETHAZINE 25 MG/ML VIAL IM PRN (17:04)
[2024-07-02] MEDS ORDERED: morphine 4 MG/ML VIAL IV PRN (17:04)
[2024-07-02] MEDS ORDERED: BENZOCAINE/MENTHOL 1 LOZENGE PO PRN (17:04)
[2024-07-02] MEDS: 0.9 % SODIUM CHLORIDE 1,000 ML IV SCH (18:47)
[2024-07-02] MEDS: CALCIUM W/VIT D3 500 MG TABLET PO SCH (20:06)
[2024-07-02] MEDS: DULoxetine 30 MG CAPSULE PO SCH (20:06)
[2024-07-02] MEDS: DOCUSATE SODIUM 100 MG CAPSULE PO SCH (20:07)
[2024-07-02] MEDS: traZODone HCL 50 MG TABLET PO PRN (20:07)
[2024-07-02] MEDS: SENNOSIDES 1 TABLET PO SCH (20:09)
[2024-07-02] MEDS ORDERED: SENNOSIDES 1 TABLET PO SCH (21:00)
[2024-07-02] MEDS ORDERED: DOCUSATE SODIUM 100 MG CAPSULE PO SCH (21:00)
[2024-07-03 06:32] LABS: Hematocrit 39.4 % (34.1-44.9); Hemoglobin 12.2 g/dL (11.2-15.7)
[2024-07-03 07:14] LABS: Prothrombin Time 13.5 sec (11.9-14.5)
[2024-07-03] MEDS: ENOXAPARIN 40 MG/0.4 ML SYRINGE SQ SCH (08:10)
[2024-07-03] MEDS: LACTOBACILLUS 1 CAPSULE PO SCH (08:10)
[2024-07-03] MEDS: MAGNESIUM OXIDE 400 MG TABLET PO SCH (08:10)
[2024-07-03] MEDS: oxyCODONE/APAP 5/325MG TABLET PO PRN (11:19)
[2024-07-03] MEDS: BACLOFEN 10 MG TABLET PO SCH (14:53)
[2024-07-03] MEDS: 0.9 % SODIUM CHLORIDE 10 ML SYRINGE IV SCH (20:34)
[2024-07-04 06:16] LABS: Hematocrit 40.3 % (34.1-44.9); Hemoglobin 12.8 g/dL (11.2-15.7)
[2024-07-04 06:29] LABS: Prothrombin Time 13.6 sec (11.9-14.5)
[2024-07-05 06:37] LABS: Hematocrit 43.5 % (34.1-44.9)
[2024-07-05 06:38] LABS: Hemoglobin 13.5 g/dL (11.2-15.7)
[2024-07-05 06:45] LABS: INR 0.9 (0.9-1.1); Prothrombin Time 13.1 sec (11.9-14.5)
[2024-07-05 07:24] VITALS: TEMP 98.6; O2SAT 99
[2024-07-09] MEDS ORDERED: ALENDRONATE SODIUM 70 MG TABLET PO SCH (09:00)
== END 2024-07-05 11:30 | DRG 563 ==
LOC: ED 05:24 → MEDSUR 09:48
PROVIDERS: ADMIT Internal Medicine; ATTEND Internal Medicine